=== PATIENT | female | born 1960 | race Caucasian/White ===

== ENCOUNTER 2019-04-03 21:52 | Inpatient (IN) | payer BC, OTHER, SELFPAY ==
[~2019-04-03 21:52] MED LIST: Sodium Chloride 0.9% 10 ML Syringe FLUSH PRN
[2019-04-03] MEDS ORDERED: Albuterol/Ipratropium 3.0-0.5 MG/3 ML Neb Soln NEB ONE (21:53)
[2019-04-03] MEDS ORDERED: methylPREDNISolone Sodium Succinate 125 MG/2 ML SDV IVPUSH ONE (21:54)
--- NOTE | 2019-04-03 22:02 | EDM.PDOC ---
ED HPI GENERAL MEDICAL PROBLEM - General Chief Complaint: Respiratory Problem Stated Complaint: [facility] Time Seen by Provider: 04/03/19 21:52 Source of Information: Reports: Patient, EMS History Limitations: Reports: Respiratory Distress - History of Present Illness INITIAL COMMENTS - FREE TEXT/NARRATIVE: The patient presents by [facility] for shortness of breath. The patient said she developed a cough today and her breathing and cough got much worse. Her oxygen saturations were 68% when EMS arrived. She was immediately put on oxygen and given [address] in. She has no history of COPD or asthma. She does smoke about a pack of cigarettes per day. She said about a year ago she got the flu and she has had trouble with her lungs since. She has no chest pain but she is very short of breath. She is speaking in short phrases. She has no fever or chills. She has no abdominal pain, nausea or vomiting. Onset: Gradual Duration: Hour(s): Severity: Severe Improves with: Reports: None Worsens with: Reports: None Associated Symptoms: Reports: Cough, Shortness of Breath. Denies: Fever/Chills , Headaches, Nausea/Vomiting - Related Data Allergies Allergy/AdvReac Type Severity Reaction Status Date / Time amoxicillin [From Augmentin] Allergy Airway Verified 04/03/19 22:27 Tightness cephalexin Allergy Airway Verified 04/03/19 22:27 Tightness clavulanic acid Allergy Airway Verified 04/03/19 22:27 [From Augmentin] Tightness enoxaparin [From Lovenox] Allergy Bradycardia Verified 04/03/19 22:27 Macrolide Antibiotics AdvReac Hallucinati Verified 04/03/19 22:27 ons antibiotic Allergy Airway Uncoded 04/03/19 22:27 Tightness Home Meds: Home Meds Carvedilol [Coreg] 25 mg PO BID 01/22/15 [History] Insulin Glarg,Human.Rec.Analog [LantUS Solostar] 52 units SUBCUT 1300 01/22/15 [ History] LORazepam [Ativan] 0.5 mg PO TID PRN 01/22/15 [History] Lisinopril 40 mg PO DAILY 01/22/15 [History] Simvastatin [Zocor] 40 mg PO DAILY 01/22/15 [History] Zolpidem [Ambien] 10 mg PO BEDTIME PRN 01/22/15 [History] glipiZIDE [Glipizide ER] 10 mg PO BID 01/22/15 [History] metFORMIN [Glucophage] 1,000 mg PO BID 01/22/15 [History] traZODone 50 mg PO BEDTIME PRN 01/22/15 [History] All Natural Vitamin Pack 01/13/16 [History] Aspirin [Children's Aspirin] 81 mg PO DAILY 01/13/16 [History] Sertraline [Zoloft] 50 mg PO DAILY 01/13/16 [History] Dulaglutide [Trulicity] 0.75 mg SUBCUT WEEKLY 04/03/19 [History] Past Medical History Other HEENT History: wears dentures, glasses Cardiovascular History: Reports: High Cholesterol, Hypertension Respiratory History: Reports: Sleep Apnea, SOB Other Respiratory History: chronic cough Gastrointestinal History: Reports: Diverticulosis, Other (See Below) Other Gastrointestinal History: melanosis coli Genitourinary History: Reports: Renal Calculus [employer] History: Reports: Other [employer] History: bilateral partial oophorectomy (has / of 1 ovary) Other Musculoskeletal History: joint pain Neurological History: Reports: Headaches, Chronic Other Neuro History: fatigue Psychiatric History: Reports: Anxiety, Depression Endocrine/Metabolic History: Reports: Diabetes, Type II - Infectious Disease History Infectious Disease History: Reports: C-Difficile - Past Surgical History GI Surgical History: Reports: Colonoscopy, Hernia Repair/Other Female Surgical History: Reports: Section, Oophorectomy Social & Family History - Family History HEENT: Reports: None Cardiac: Reports: [place] (mother) Respiratory: Reports: None GI: Reports: None : Reports: None Psychiatric: Reports: None Endocrine/Metabolic: Reports: IDDM - Living Situation & Occupation Living situation: Reports: with Spouse Occupation: Employed ED ROS GENERAL - Review of Systems Review Of Systems: See Below Constitutional: Reports: No Symptoms HEENT: Reports: No Symptoms Respiratory: Reports: Shortness of Breath, Cough Cardiovascular: Reports: No Symptoms Endocrine: Reports: No Symptoms GI/Abdominal: Reports: No Symptoms : Reports: No Symptoms Musculoskeletal: Reports: No Symptoms ED EXAM, GENERAL - Physical Exam Exam: See Below Exam Limited By: Respiratory Distress General Appearance: Alert, Severe Distress Ears: Normal External Exam Nose: Normal Inspection Head: Atraumatic, Normocephalic Neck: Normal Inspection Respiratory/Chest: Respiratory Distress (severe), Decreased Breath Sounds Cardiovascular: No Edema, No Murmur, Tachycardia GI/Abdominal: Soft, Non-Tender, No Organomegaly, No Mass Back Exam: Normal Inspection Extremities: Normal Inspection Neurological: Alert, Oriented, No Motor/Sensory Deficits EKG INTERPRETATION EKG Date: 04/03/19 Time: 21:57 Rhythm: NSR Rate (Beats/Min): 96 [place]: Normal P-Wave: Present QRS: Normal ST-T: Normal QT: Normal Course - Vital Signs Last Recorded V/S: Last Vital Signs Temp 97.8 F 04/03/19 21:53 Pulse 104 H 04/03/19 21:53 Resp 33 H 04/03/19 21:53 BP 189/85 H 04/03/19 21:53 Pulse Ox 94 L 04/03/19 22:21 - Orders/Labs/Meds Orders: Active Orders 24 hr Category Date Time Status Cardiac Monitoring [RC] . DIRECTED Care 04/03/19 21:52 Active EKG Documentation Completion [RC] STAT Care 04/03/19 21:53 Active Oxygen Therapy [RC] PRN Care 04/03/19 21:52 Active Peripheral IV Care [RC] . DIRECTED Care 04/03/19 21:53 Active RT Aerosol Therapy [RC] ASDIRECTED Care 04/03/19 21:54 Active Ang Chest [CT] Stat Exams 04/03/19 23:02 Taken Chest 1V Frontal [CR] Stat Exams 04/03/19 21:53 Taken CULTURE BLOOD [BC] Stat Lab 04/03/19 23:20 Received CULTURE BLOOD [BC] Stat Lab 04/03/19 23:30 Received Sodium Chloride 0.9% [Saline Flush] Med 04/03/19 21:52 Active 10 ml FLUSH ASDIRECTED PRN Sodium Chloride 0.9% [Saline Flush] Med 04/03/19 23:40 Active 10 ml FLUSH ASDIRECTED PRN Blood Culture x2 Reflex Set [OM.PC] Stat Oth 04/03/19 23:02 Ordered Blood Culture x2 Reflex Set [OM.PC] Stat Oth 04/03/19 23:43 Ordered Peripheral IV Insertion Adult [OM.PC] Stat Oth 04/03/19 21:52 Ordered Saline Lock Insert [OM.PC] Stat Oth 04/03/19 23:43 Ordered Severe Sepsis Onset Time [OM.PC] Stat Oth 04/03/19 23:43 Ordered Medication Orders Sodium Chloride (Saline Flush) 10 ml FLUSH ASDIRECTED PRN PRN Reason: Keep Vein Open Sodium Chloride (Saline Flush) 10 ml FLUSH ASDIRECTED PRN PRN Reason: Keep Vein Open Labs: Laboratory Tests 04/03/19 04/03/19 04/03/19 Range/Units 22:05 22:23 22:23 WBC 12.88 H (3.98-10.04) K/mm3 RBC 3.72 L (3.98-5.22) M/mm3 Hgb 8.9 L D (11.2-15.7) gm/dl Hct 30.8 L (34.1-44.9) % MCV 82.8 D (79.4-94.8) fl MCH 23.9 L (25.6-32.2) pg MCHC 28.9 L (32.2-35.5) g/dl RDW Std Deviation 56.2 H (36.4-46.3) fL Plt Count 424 H D (182-369) K/mm3 MPV 10.7 (9.4-12.3) fl Neut % (Auto) 71.4 H (34.0-71.1) % Lymph % (Auto) 20.6 (19.3-51.7) % [place] % (Auto) 6.5 (4.7-12.5) % Eos % (Auto) 1.1 (0.7-5.8) Baso % (Auto) 0.2 (0.1-1.2) % Neut # (Auto) 9.19 H (1.56-6.13) K/mm3 Lymph # (Auto) 2.65 (1.18-3.74) K/mm3 [place] # (Auto) 0.84 H (0.24-0.36) K/mm3 Eos # (Auto) 0.14 (0.04-0.36) K/mm3 Baso # (Auto) 0.03 (0.01-0.08) K/mm3 Manual Slide Review Abnormal smear PT (9.7-12.0) SECONDS INR D-Dimer, Quantitative (0.19-0.50) mg/L Puncture Site Lt radial ABG pH 7.30 L (7.35-7.45) ABG pCO2 47.1 H (35.0-45.0) mmHg ABG pO2 117.0 H (80.0-100.0) mmHg ABG HCO3 22.3 (22.0-26.0) meq/L ABG O2 Saturation 98.6 H (96.0-97.0) % ABG Base Excess -3.6 L (-2-2.0) Tio Test Positive A-a Gradient 167 mmHg O2 Delivery Device Simple mask Oxygen Flow Rate 7.0 FiO2 48.00 (21.00-100.00) % Sodium 137 (136-145) mEq/L Potassium 3.9 (3.5-5.1) mEq/L Chloride 102 (98-107) mEq/L Carbon Dioxide 25 (21-32) mEq/L Anion Gap 13.9 (5-15) BUN 10 (7-18) mg/dL Creatinine 0.9 (0.55-1.02) mg/dL Est Cr Clr Drug Dosing 61.31 mL/min Estimated GFR (MDRD) > 60 (>60) mL/min BUN/Creatinine Ratio 11.1 L (14-18) Glucose 229 H (74-106) mg/dL Lactic Acid (0.4-2.0) mmol/L Calcium 8.6 (8.5-10.1) mg/dL Total Bilirubin 0.2 (0.2-1.0) mg/dL AST 45 H (15-37) U/L ALT 36 (14-59) U/L Alkaline Phosphatase 92 (46-116) U/L Troponin I 0.021 (0.00-0.056) ng/mL C-Reactive Protein 0.4 (<1.0) mg/dL NT-Pro-B Natriuret Pep (0-125) pg/mL Total Protein 7.1 (6.4-8.2) g/dl Albumin 3.0 L (3.4-5.0) g/dl Globulin 4.1 gm/dL Albumin/Globulin Ratio 0.7 L (1-2) 04/03/19 04/03/19 04/03/19 Range/Units 22:23 22:23 22:33 WBC (3.98-10.04) K/mm3 RBC (3.98-5.22) M/mm3 Hgb (11.2-15.7) gm/dl Hct (34.1-44.9) % MCV (79.4-94.8) fl MCH (25.6-32.2) pg MCHC (32.2-35.5) g/dl RDW Std Deviation (36.4-46.3) fL Plt Count (182-369) K/mm3 MPV (9.4-12.3) fl Neut % (Auto) (34.0-71.1) % Lymph % (Auto) (19.3-51.7) % [place] % (Auto) (4.7-12.5) % Eos % (Auto) (0.7-5.8) Baso % (Auto) (0.1-1.2) % Neut # (Auto) (1.56-6.13) K/mm3 Lymph # (Auto) (1.18-3.74) K/mm3 [place] # (Auto) (0.24-0.36) K/mm3 Eos # (Auto) (0.04-0.36) K/mm3 Baso # (Auto) (0.01-0.08) K/mm3 Manual Slide Review PT 11.9 (9.7-12.0) SECONDS INR 1.10 D-Dimer, Quantitative 0.95 H (0.19-0.50) mg/L Puncture Site ABG pH (7.35-7.45) ABG pCO2 (35.0-45.0) mmHg ABG pO2 (80.0-100.0) mmHg ABG HCO3 (22.0-26.0) meq/L ABG O2 Saturation (96.0-97.0) % ABG Base Excess (-2-2.0) Tio Test A-a Gradient mmHg O2 Delivery Device Oxygen Flow Rate FiO2 (21.00-100.00) % Sodium (136-145) mEq/L Potassium (3.5-5.1) mEq/L Chloride (98-107) mEq/L Carbon Dioxide (21-32) mEq/L Anion Gap (5-15) BUN (7-18) mg/dL Creatinine (0.55-1.02) mg/dL Est Cr Clr Drug Dosing mL/min Estimated GFR (MDRD) (>60) mL/min BUN/Creatinine Ratio (14-18) Glucose (74-106) mg/dL Lactic Acid (0.4-2.0) mmol/L Calcium (8.5-10.1) mg/dL Total Bilirubin (0.2-1.0) mg/dL AST (15-37) U/L ALT (14-59) U/L Alkaline Phosphatase (46-116) U/L Troponin I (0.00-0.056) ng/mL C-Reactive Protein (<1.0) mg/dL NT-Pro-B Natriuret Pep 1498 H (0-125) pg/mL Total Protein (6.4-8.2) g/dl Albumin (3.4-5.0) g/dl Globulin gm/dL Albumin/Globulin Ratio (1-2) 04/03/19 04/03/19 Range/Units 22:33 23:30 WBC (3.98-10.04) K/mm3 RBC (3.98-5.22) M/mm3 Hgb (11.2-15.7) gm/dl Hct (34.1-44.9) % MCV (79.4-94.8) fl MCH (25.6-32.2) pg MCHC (32.2-35.5) g/dl RDW Std Deviation (36.4-46.3) fL Plt Count (182-369) K/mm3 MPV (9.4-12.3) fl Neut % (Auto) (34.0-71.1) % Lymph % (Auto) (19.3-51.7) % [place] % (Auto) (4.7-12.5) % Eos % (Auto) (0.7-5.8) Baso % (Auto) (0.1-1.2) % Neut # (Auto) (1.56-6.13) K/mm3 Lymph # (Auto) (1.18-3.74) K/mm3 [place] # (Auto) (0.24-0.36) K/mm3 Eos # (Auto) (0.04-0.36) K/mm3 Baso # (Auto) (0.01-0.08) K/mm3 Manual Slide Review PT (9.7-12.0) SECONDS INR D-Dimer, Quantitative (0.19-0.50) mg/L Puncture Site ABG pH (7.35-7.45) ABG pCO2 (35.0-45.0) mmHg ABG pO2 (80.0-100.0) mmHg ABG HCO3 (22.0-26.0) meq/L ABG O2 Saturation (96.0-97.0) % ABG Base Excess (-2-2.0) Tio Test A-a Gradient mmHg O2 Delivery Device Oxygen Flow Rate FiO2 (21.00-100.00) % Sodium (136-145) mEq/L Potassium (3.5-5.1) mEq/L Chloride (98-107) mEq/L Carbon Dioxide (21-32) mEq/L Anion Gap (5-15) BUN (7-18) mg/dL Creatinine (0.55-1.02) mg/dL Est Cr Clr Drug Dosing mL/min Estimated GFR (MDRD) (>60) mL/min BUN/Creatinine Ratio (14-18) Glucose (74-106) mg/dL Lactic Acid 1.8 (0.4-2.0) mmol/L Calcium (8.5-10.1) mg/dL Total Bilirubin (0.2-1.0) mg/dL AST (15-37) U/L ALT (14-59) U/L Alkaline Phosphatase (46-116) U/L Troponin I (0.00-0.056) ng/mL C-Reactive Protein 0.3 (<1.0) mg/dL NT-Pro-B Natriuret Pep (0-125) pg/mL Total Protein (6.4-8.2) g/dl Albumin (3.4-5.0) g/dl Globulin gm/dL Albumin/Globulin Ratio (1-2) Meds: Medications Generic Name Dose Route Start Last Admin Trade Name Freq PRN Reason Stop Dose Admin Sodium Chloride 10 ml 04/03/19 21:52 Saline Flush FLUSH ASDIRECTED PRN Keep Vein Open Sodium Chloride 10 ml 04/03/19 23:40 Saline Flush FLUSH ASDIRECTED PRN Keep Vein Open Discontinued Medications Generic Name Dose Route Start Last Admin Trade Name Freq PRN Reason Stop Dose Admin Albuterol/Ipratropium 3 ml 04/03/19 21:53 01/28/20 22:14 Duoneb 3.0-0.5 Mg/3 Ml NEB 04/03/19 21:54 3 ml ONETIME ONE Administration Furosemide 40 mg 04/04/19 00:39 Lasix IVPUSH 04/04/19 00:40 NOW ONE Magnesium Sulfate/Dextrose 1 100 mls @ 100 mls/hr 04/03/19 22:00 04/03/19 23: 57 gm/ Premix IV 04/03/19 23:59 100 mls/hr Q1H ELY Administration Vancomycin HCl 2 gm/ Dextrose/ 250 mls @ 167 mls/hr 04/03/19 23:40 04/04/19 00:45 Water IV 04/04/19 01:09 Not Given ONETIME ONE Methylprednisolone Sodium Succinate 125 mg 04/03/19 21:54 04/03/19 22:08 Solu-Medrol IVPUSH 04/03/19 21:55 125 mg ONETIME ONE Administration - Re-Assessments/Exams Free Text/Narrative Re-Assessment/Exam: 04/03/19 22:03 I ordered an IV saline lock, oxygen, duoneb, solu-medrol 125mg IV, magnesium 2 grams IV, EKG, CXR and labs. Her EKG shows a NSR with no acute changes. 04/03/19 23:35 Her CXR shows nothing acute. Her WBC was elevated at 12.88. Her Hgb was low at 8.9. Her platelets were elevated at 424. Her D-dimer was elevated at 0.95. Her pH was low at 7.3. Her pCO2 was elevated at 47.1. Her pO2 was elevated at 117. Her glucose was elevated at 229. Her AST was elevated at 45. Her troponin is negative. Her BNP is elevated at 1498. She is breathing much better. She is on 3L now and her oxygen saturations are over 94%. She is moving more air. I have added a CT angio of her chest, blood cultures and lactic acid. 04/04/19 00:[address] angio of her chest shows no pulmonary embolism. Pattern of interstitial pulmonary edema. Her lactic acid was normal. I do not feel she has sepsis or pneumonia. She does have some CHF. I did order lasix 40mg IV. I feel she needs to be admitted. I will admit her to the hospitalist service. Departure - Departure Time of Disposition: 00:50 Disposition: Admitted As Inpatient 67 Condition: Fair Clinical Impression: Hypoxia CHF (congestive heart failure) Qualifiers: Heart failure type: other Qualified Code(s): I50.9 - Heart failure, unspecified COPD (chronic obstructive pulmonary disease) Qualifiers: COPD type: unspecified COPD Qualified Code(s): J44.9 - Chronic obstructive pulmonary disease, unspecified - Discharge Information Referrals: PCP,Unknown [Ordering Only Provider] - Forms: ED Department Discharge Sepsis Event Note - Focused Exam Vital Signs: Vital Signs Temp Pulse Resp BP Pulse Ox Pulse Ox Pulse Ox 04/03/19 22:21 94 L 04/03/19 21:54 100 04/03/19 21:53 97.8 F 104 H 33 H 189/85 H 92 L 04/03/19 21:52 93 L Date Exam was Performed: 04/04/19 Time Exam was Performed: 00:45 - My Orders Last 24 Hours: My Active Orders 04/03/19 21:52 Cardiac Monitoring [RC] . DIRECTED Oxygen Therapy [RC] PRN Sodium Chloride 0.9% [Saline Flush] 10 ml FLUSH ASDIRECTED PRN Peripheral IV Insertion Adult [OM.PC] Stat 04/03/19 21:53 EKG Documentation Completion [RC] STAT Peripheral IV Care [RC] . DIRECTED Chest 1V Frontal [CR] Stat 04/03/19 21:54 RT Aerosol Therapy [RC] ASDIRECTED 04/03/19 23:02 Ang Chest [CT] Stat Blood Culture x2 Reflex Set [OM.PC] Stat 04/03/19 23:20 CULTURE BLOOD [BC] Stat 04/03/19 23:30 CULTURE BLOOD [BC] Stat 04/03/19 23:40 Sodium Chloride 0.9% [Saline Flush] 10 ml FLUSH ASDIRECTED PRN 04/03/19 23:43 Blood Culture x2 Reflex Set [OM.PC] Stat Saline Lock Insert [OM.PC] Stat Severe Sepsis Onset Time [OM.PC] Stat - Assessment/Plan Last 24 Hours: My Active Orders 04/03/19 21:52 Cardiac Monitoring [RC] . DIRECTED Oxygen Therapy [RC] PRN Sodium Chloride 0.9% [Saline Flush] 10 ml FLUSH ASDIRECTED PRN Peripheral IV Insertion Adult [OM.PC] Stat 04/03/19 21:53 EKG Documentation Completion [RC] STAT Peripheral IV Care [RC] . DIRECTED Chest 1V Frontal [CR] Stat 04/03/19 21:54 RT Aerosol Therapy [RC] ASDIRECTED 04/03/19 23:02 Ang Chest [CT] Stat Blood Culture x2 Reflex Set [OM.PC] Stat 04/03/19 23:20 CULTURE BLOOD [BC] Stat 04/03/19 23:30 CULTURE BLOOD [BC] Stat 04/03/19 23:40 Sodium Chloride 0.9% [Saline Flush] 10 ml FLUSH ASDIRECTED PRN 04/03/19 23:43 Blood Culture x2 Reflex Set [OM.PC] Stat Saline Lock Insert [OM.PC] Stat Severe Sepsis Onset Time [OM.PC] Stat
[2019-04-03] MEDS ORDERED: Sodium Chloride 0.9% 10 ML Syringe FLUSH PRN (23:40)
[2019-04-03] MEDS ORDERED: Vancomycin 2 GM in Dextrose 5% in Water 250 ML IV ONE ×2 (23:40)
[2019-04-04] MEDS ORDERED: Furosemide 40 MG/4 ML VIAL IVPUSH ONE (00:39)
[2019-04-04] MEDS: Albuterol/Ipratropium 3.0-0.5 MG/3 ML Neb Soln NEB SCH ×2 (03:43→08:21)
--- NOTE | 2019-04-04 07:38 | CT ---
CT chest Technique: Multiple axial sections through the chest were obtained. Intravenous contrast was utilized. Study has been performed as a pulmonary angiogram protocol. Comparison: Pulmonary arteries are moderately well opacified. No filling defects are seen to indicate definite pulmonary embolism. Mild coronary artery calcification is seen. Visualized upper abdominal structures showed no discrete abnormality. Mediastinum shows several lymph nodes which are felt to be within normal limits. No axillary adenopathy is identified. Heart is enlarged. Slight atelectasis is present within both lung bases. Findings suspicious for mild pulmonary vascular congestion. Bone window settings were reviewed. Slight degenerative change is noted throughout the spine. No acute osseous finding is appreciated. Impression: 1. Findings within both lungs suggesting mild pulmonary vascular congestion. Heart is enlarged and please correlate if clinical symptoms suggest mild CHF. 2. No findings of pulmonary embolism. 3. Other findings believed to be incidental as described above. Diagnostic code #3 This report was dictated in [place] Standard Time I agree with preliminary report from [facility], finalized on 04/04/19, 1:10 AM Central Time
--- NOTE | 2019-04-04 07:38 | CR ---
Chest: Frontal view of the chest was obtained. Comparison: Previous chest x-ray of 10/23/15. Heart size at the upper limits of normal. Lung markings are mildly increased suspicious for mild pulmonary vascular congestion. Lungs otherwise are clear. No acute parenchymal change is seen. Scattered endplate spurring is noted within the spine. Impression: 1. Findings suspicious for mild CHF. 2. Please correlate if this matches patient's clinical symptoms. Diagnostic code #3
[2019-04-04] MEDS ORDERED: 50% Dextrose in Water 50 ML Syringe IVPUSH PRN (08:17)
[2019-04-04] MEDS ORDERED: Albuterol 0.083% 2.5 MG/3 ML Neb Soln NEB PRN (08:18)
[2019-04-04] MEDS ORDERED: Ondansetron 4 MG/2 ML SDV IV PRN (08:18)
[2019-04-04] MEDS ORDERED: Acetaminophen 325 MG Tab PO PRN (08:18)
[2019-04-04] MEDS: Nicotine 14 MG/24 Hr Patch TRDERM SCH (09:19)
[2019-04-04 09:27] LABS: HEMOGLOBIN A1C 7.5 % (4.50-6.20)
[2019-04-04] MEDS ORDERED: Zolpidem 10 MG Tab PO PRN (09:49)
--- NOTE | 2019-04-04 09:55 | PCM.HP.2 ---
H&P History of Present Illness - General Date of Service: 04/04/19 Admit Problem/Dx: Admission Diagnosis/Problem Admission Diagnosis/Problem Hypoxia - History of Present Illness Initial Comments - Free Text/Narative: Loly presented to the emergency room last night with chief complaint of "could not breathe." Patient states that last night she was congested, had nasal mucus, was coughing and could not stop. Called EMS because she could not breathe and when they arrived at her home oxygen saturations were 68%. Patient received 2 breathing treatments and placed on oxygen. She denies any history of COPD or asthma, but states last year she had a "lung flu" and she has had a cough ever since. She smokes 1/2 pack/day for the last 40 years. She states that she has been on inhalers. Patient denies any fever, chills, night sweats, chest pain, dyspnea on exertion, or PND. 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 Patient was very confused about her medication and stated over again that her knows why she is on her medications. In the emergency room a CT of the chest was performed after a positive d-dimer which found findings within both lungs suggesting mild pulmonary vascular congestion. Heart is enlarged and please correlate if clinical symptoms suggest mild CHF. She was given 40 mg of IV Lasix, Solu-Medrol, magnesium, and DuoNeb. Patient is feeling much better this morning and oxygen saturations have improved. Emergency room labs: WBC 12.88, hemoglobin 8.9, platelets 424, MCV 82.8 and MCH 23.9. pH 7.30, PCO2 47.1, PO2 117.0, HCO3 22.3, on 7 L simple mask with FiO2 of 40%. Troponin 0 0.021, C-reactive protein 0.4, BNP 1498, d-dimer 0.95, negative lactic acid - Related Data Allergies/Adverse Reactions: Allergies Allergy/AdvReac Type Severity Reaction Status Date / Time amoxicillin [From Augmentin] Allergy Airway Verified 04/03/19 22:27 Tightness cephalexin Allergy Airway Verified 04/03/19 22:27 Tightness clavulanic acid Allergy Airway Verified 04/03/19 22:27 [From Augmentin] Tightness enoxaparin [From Lovenox] Allergy Bradycardia Verified 04/03/19 22:27 Macrolide Antibiotics AdvReac Hallucinati Verified 04/03/19 22:27 ons antibiotic Allergy Airway Uncoded 04/03/19 22:27 Tightness Home Medications: Home Meds Carvedilol [Coreg] 25 mg PO BID 01/22/15 [History] Insulin Glarg,Human.Rec.Analog [LantUS Solostar] 52 units SUBCUT 1300 01/22/15 [ History] Lisinopril 40 mg PO DAILY 01/22/15 [History] Simvastatin [Zocor] 40 mg PO DAILY 01/22/15 [History] Zolpidem [Ambien] 10 mg PO BEDTIME PRN 01/22/15 [History] glipiZIDE [Glipizide ER] 10 mg PO BID 01/22/15 [History] metFORMIN [Glucophage] 1,000 mg PO BID 01/22/15 [History] traZODone 50 mg PO BEDTIME PRN 01/22/15 [History] All Natural Vitamin Pack 01/13/16 [History] Aspirin [Children's Aspirin] 81 mg PO DAILY 01/13/16 [History] Dulaglutide [Trulicity] 0.75 mg SUBCUT WEEKLY 04/03/19 [History] Escitalopram [Lexapro] 20 mg PO DAILY 04/04/19 [History] Past Medical History Other HEENT History: wears upper dentures, glasses Cardiovascular History: Reports: Heart Failure, High Cholesterol, Hypertension, SOB on Exertion Respiratory History: Reports: COPD, Sleep Apnea, SOB Other Respiratory History: chronic cough Gastrointestinal History: Reports: Diverticulosis, Other (See Below) Other Gastrointestinal History: melanosis coli Genitourinary History: Reports: Renal Calculus [employer]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: Other OB/BYN History: bilateral partial oophorectomy (has / of 1 ovary) Musculoskeletal History: Reports: Arthritis, Other (See Below) Other Musculoskeletal History: joint pain Neurological History: Reports: Headaches, Chronic Other Neuro History: fatigue Psychiatric History: Reports: Anxiety, Depression Endocrine/Metabolic History: Reports: Diabetes, Type II - Infectious Disease History Infectious Disease History: Reports: C-Difficile, Chicken Pox - Past Surgical History Cardiovascular Surgical History: Reports: None Respiratory Surgical History: Reports: None GI Surgical History: Reports: Appendectomy, Cholecystectomy, Colonoscopy, Hernia Repair/Other Female Surgical History: Reports: Section, Oophorectomy Neurological Surgical History: Reports: None Musculoskeletal Surgical History: Reports: None Social & Family History - Family History Family Medical History: Noncontributory HEENT: Reports: None Cardiac: Reports: [place] Respiratory: Reports: None GI: Reports: None : Reports: None Psychiatric: Reports: None Endocrine/Metabolic: Reports: IDDM Other Endocrine/Metabolic Family History: Alpha1 antitripsin deficiency - Tobacco Use Smoking Status *Q: Current Every Day Smoker Years of Tobacco use: 40 Packs/Tins Daily: 1 Used Tobacco, but Quit: No Second Hand Smoke Exposure: Yes - Caffeine Use Caffeine Use: Reports: Coffee, Soda - Recreational Drug Use Recreational Drug Use: No - Living Situation & Occupation Living situation: Reports: with Spouse Occupation: Employed H&P Review of Systems - Review of Systems: Review Of Systems: Comprehensive ROS is negative, except as noted in HPI. Exam - Exam Exam: See Below - Vital Signs Vital Signs: Last Vital Signs Temp 97.3 F 04/04/19 01:56 Pulse 77 04/04/19 01:56 Resp 22 H 04/04/19 01:56 BP 144/61 H 04/04/19 01:56 Pulse Ox 90 L 04/04/19 08:21 Weight: 273 lb 6.4 oz - Exam Quality Assessment: Supplemental Oxygen General: Alert, Oriented, 4 HEENT: Conjunctiva Clear, Hearing Intact, Mucosa Moist & [place], Normal Nasal Septum Neck: Supple, Trachea Midline, 2 Lungs: Normal Respiratory Effort, Rales Cardiovascular: Regular Rate, Regular Rhythm GI/Abdominal Exam: Normal Bowel Sounds, Soft, Non-Tender, No Organomegaly, No Distention, No Abnormal Bruit, No Mass, Pelvis Stable Back Exam: Normal Inspection Extremities: Normal Inspection, Normal Range of Motion, Non-Tender, Normal Capillary Refill, Pedal Edema (Scant) Skin: Warm, Dry, Intact Neurological: Cranial Nerves Intact Neuro Extensive - Mental Status: Alert, Oriented x3, Normal Mood/Affect, Memory Intact Neuro Extensive - Motor, Sensory, Reflexes: CN II-XII Intact Psychiatric: Alert, Normal Affect, Normal Mood - Patient Data Lab Results Last 24 hrs: Laboratory Results - last 24 hr 04/03/19 04/03/19 04/03/19 Range/Units 22:05 22:23 22:23 WBC 12.88 H (3.98-10.04) K/mm3 RBC 3.72 L (3.98-5.22) M/mm3 Hgb 8.9 L D (11.2-15.7) gm/dl Hct 30.8 L (34.1-44.9) % MCV 82.8 D (79.4-94.8) fl MCH 23.9 L (25.6-32.2) pg MCHC 28.9 L (32.2-35.5) g/dl RDW Std Deviation 56.2 H (36.4-46.3) fL Plt Count 424 H D (182-369) K/mm3 MPV 10.7 (9.4-12.3) fl Neut % (Auto) 71.4 H (34.0-71.1) % Lymph % (Auto) 20.6 (19.3-51.7) % [place] % (Auto) 6.5 (4.7-12.5) % Eos % (Auto) 1.1 (0.7-5.8) Baso % (Auto) 0.2 (0.1-1.2) % Neut # (Auto) 9.19 H (1.56-6.13) K/mm3 Lymph # (Auto) 2.65 (1.18-3.74) K/mm3 [place] # (Auto) 0.84 H (0.24-0.36) K/mm3 Eos # (Auto) 0.14 (0.04-0.36) K/mm3 Baso # (Auto) 0.03 (0.01-0.08) K/mm3 Manual Slide Review Abnormal smear PT (9.7-12.0) SECONDS INR D-Dimer, Quantitative (0.19-0.50) mg/L Puncture Site Lt radial ABG pH 7.30 L (7.35-7.45) ABG pCO2 47.1 H (35.0-45.0) mmHg ABG pO2 117.0 H (80.0-100.0) mmHg ABG HCO3 22.3 (22.0-26.0) meq/L ABG O2 Saturation 98.6 H (96.0-97.0) % ABG Base Excess -3.6 L (-2-2.0) Tio Test Positive A-a Gradient 167 mmHg O2 Delivery Device Simple mask Oxygen Flow Rate 7.0 FiO2 48.00 (21.00-100.00) % Sodium 137 (136-145) mEq/L Potassium 3.9 (3.5-5.1) mEq/L Chloride 102 (98-107) mEq/L Carbon Dioxide 25 (21-32) mEq/L Anion Gap 13.9 (5-15) BUN 10 (7-18) mg/dL Creatinine 0.9 (0.55-1.02) mg/dL Est Cr Clr Drug Dosing 61.31 mL/min Estimated GFR (MDRD) > 60 (>60) mL/min BUN/Creatinine Ratio 11.1 L (14-18) Glucose 229 H (74-106) mg/dL Hemoglobin A1c (4.50-6.20) % Lactic Acid (0.4-2.0) mmol/L Calcium 8.6 (8.5-10.1) mg/dL Magnesium (1.8-2.4) mg/dl Total Bilirubin 0.2 (0.2-1.0) mg/dL AST 45 H (15-37) U/L ALT 36 (14-59) U/L Alkaline Phosphatase 92 (46-116) U/L Troponin I 0.021 (0.00-0.056) ng/mL C-Reactive Protein 0.4 (<1.0) mg/dL NT-Pro-B Natriuret Pep (0-125) pg/mL Total Protein 7.1 (6.4-8.2) g/dl Albumin 3.0 L (3.4-5.0) g/dl Globulin 4.1 gm/dL Albumin/Globulin Ratio 0.7 L (1-2) 04/03/19 04/03/19 04/03/19 Range/Units 22:23 22:23 22:33 WBC (3.98-10.04) K/mm3 RBC (3.98-5.22) M/mm3 Hgb (11.2-15.7) gm/dl Hct (34.1-44.9) % MCV (79.4-94.8) fl MCH (25.6-32.2) pg MCHC (32.2-35.5) g/dl RDW Std Deviation (36.4-46.3) fL Plt Count (182-369) K/mm3 MPV (9.4-12.3) fl Neut % (Auto) (34.0-71.1) % Lymph % (Auto) (19.3-51.7) % [place] % (Auto) (4.7-12.5) % Eos % (Auto) (0.7-5.8) Baso % (Auto) (0.1-1.2) % Neut # (Auto) (1.56-6.13) K/mm3 Lymph # (Auto) (1.18-3.74) K/mm3 [place] # (Auto) (0.24-0.36) K/mm3 Eos # (Auto) (0.04-0.36) K/mm3 Baso # (Auto) (0.01-0.08) K/mm3 Manual Slide Review PT 11.9 (9.7-12.0) SECONDS INR 1.10 D-Dimer, Quantitative 0.95 H (0.19-0.50) mg/L Puncture Site ABG pH (7.35-7.45) ABG pCO2 (35.0-45.0) mmHg ABG pO2 (80.0-100.0) mmHg ABG HCO3 (22.0-26.0) meq/L ABG O2 Saturation (96.0-97.0) % ABG Base Excess (-2-2.0) Tio Test A-a Gradient mmHg O2 Delivery Device Oxygen Flow Rate FiO2 (21.00-100.00) % Sodium (136-145) mEq/L Potassium (3.5-5.1) mEq/L Chloride (98-107) mEq/L Carbon Dioxide (21-32) mEq/L Anion Gap (5-15) BUN (7-18) mg/dL Creatinine (0.55-1.02) mg/dL Est Cr Clr Drug Dosing mL/min Estimated GFR (MDRD) (>60) mL/min BUN/Creatinine Ratio (14-18) Glucose (74-106) mg/dL Hemoglobin A1c (4.50-6.20) % Lactic Acid (0.4-2.0) mmol/L Calcium (8.5-10.1) mg/dL Magnesium (1.8-2.4) mg/dl Total Bilirubin (0.2-1.0) mg/dL AST (15-37) U/L ALT (14-59) U/L Alkaline Phosphatase (46-116) U/L Troponin I (0.00-0.056) ng/mL C-Reactive Protein (<1.0) mg/dL NT-Pro-B Natriuret Pep 1498 H (0-125) pg/mL Total Protein (6.4-8.2) g/dl Albumin (3.4-5.0) g/dl Globulin gm/dL Albumin/Globulin Ratio (1-2) 04/03/19 04/03/19 04/04/19 Range/Units 22:33 23:30 07:58 WBC (3.98-10.04) K/mm3 RBC (3.98-5.22) M/mm3 Hgb (11.2-15.7) gm/dl Hct (34.1-44.9) % MCV (79.4-94.8) fl MCH (25.6-32.2) pg MCHC (32.2-35.5) g/dl RDW Std Deviation (36.4-46.3) fL Plt Count (182-369) K/mm3 MPV (9.4-12.3) fl Neut % (Auto) (34.0-71.1) % Lymph % (Auto) (19.3-51.7) % [place] % (Auto) (4.7-12.5) % Eos % (Auto) (0.7-5.8) Baso % (Auto) (0.1-1.2) % Neut # (Auto) (1.56-6.13) K/mm3 Lymph # (Auto) (1.18-3.74) K/mm3 [place] # (Auto) (0.24-0.36) K/mm3 Eos # (Auto) (0.04-0.36) K/mm3 Baso # (Auto) (0.01-0.08) K/mm3 Manual Slide Review PT (9.7-12.0) SECONDS INR D-Dimer, Quantitative (0.19-0.50) mg/L Puncture Site Rt radial ABG pH 7.44 (7.35-7.45) ABG pCO2 34.1 L (35.0-45.0) mmHg ABG pO2 63.0 L (80.0-100.0) mmHg ABG HCO3 22.7 (22.0-26.0) meq/L ABG O2 Saturation 93.1 L (96.0-97.0) % ABG Base Excess -0.6 (-2-2.0) Tio Test A-a Gradient 66 mmHg O2 Delivery Device Nasal cannula Oxygen Flow Rate 1.0 FiO2 24.00 (21.00-100.00) % Sodium (136-145) mEq/L Potassium (3.5-5.1) mEq/L Chloride (98-107) mEq/L Carbon Dioxide (21-32) mEq/L Anion Gap (5-15) BUN (7-18) mg/dL Creatinine (0.55-1.02) mg/dL Est Cr Clr Drug Dosing mL/min Estimated GFR (MDRD) (>60) mL/min BUN/Creatinine Ratio (14-18) Glucose (74-106) mg/dL Hemoglobin A1c (4.50-6.20) % Lactic Acid 1.8 (0.4-2.0) mmol/L Calcium (8.5-10.1) mg/dL Magnesium (1.8-2.4) mg/dl Total Bilirubin (0.2-1.0) mg/dL AST (15-37) U/L ALT (14-59) U/L Alkaline Phosphatase (46-116) U/L Troponin I (0.00-0.056) ng/mL C-Reactive Protein 0.3 (<1.0) mg/dL NT-Pro-B Natriuret Pep (0-125) pg/mL Total Protein (6.4-8.2) g/dl Albumin (3.4-5.0) g/dl Globulin gm/dL Albumin/Globulin Ratio (1-2) 04/04/19 04/04/19 04/04/19 Range/Units 08:50 08:50 08:50 WBC 11.45 H (3.98-10.04) K/mm3 RBC 3.87 L (3.98-5.22) M/mm3 Hgb 9.1 L (11.2-15.7) gm/dl Hct 31.3 L (34.1-44.9) % MCV 80.9 (79.4-94.8) fl MCH 23.5 L (25.6-32.2) pg MCHC 29.1 L (32.2-35.5) g/dl RDW Std Deviation 54.5 H (36.4-46.3) fL Plt Count 424 H (182-369) K/mm3 MPV 10.5 (9.4-12.3) fl Neut % (Auto) 83.5 H (34.0-71.1) % Lymph % (Auto) 15.0 L (19.3-51.7) % [place] % (Auto) 1.3 L (4.7-12.5) % Eos % (Auto) 0 L (0.7-5.8) Baso % (Auto) 0.0 L (0.1-1.2) % Neut # (Auto) 9.56 H (1.56-6.13) K/mm3 Lymph # (Auto) 1.72 (1.18-3.74) K/mm3 [place] # (Auto) 0.15 L (0.24-0.36) K/mm3 Eos # (Auto) 0.00 L (0.04-0.36) K/mm3 Baso # (Auto) 0.00 L (0.01-0.08) K/mm3 Manual Slide Review PT (9.7-12.0) SECONDS INR D-Dimer, Quantitative (0.19-0.50) mg/L Puncture Site ABG pH (7.35-7.45) ABG pCO2 (35.0-45.0) mmHg ABG pO2 (80.0-100.0) mmHg ABG HCO3 (22.0-26.0) meq/L ABG O2 Saturation (96.0-97.0) % ABG Base Excess (-2-2.0) Tio Test A-a Gradient mmHg O2 Delivery Device Oxygen Flow Rate FiO2 (21.00-100.00) % Sodium 136 (136-145) mEq/L Potassium 4.2 (3.5-5.1) mEq/L Chloride 100 (98-107) mEq/L Carbon Dioxide 24 (21-32) mEq/L Anion Gap 16.2 H (5-15) BUN 14 (7-18) mg/dL Creatinine 1.0 (0.55-1.02) mg/dL Est Cr Clr Drug Dosing 55.18 mL/min Estimated GFR (MDRD) 57 (>60) mL/min BUN/Creatinine Ratio 14.0 (14-18) Glucose 214 H (74-106) mg/dL Hemoglobin A1c 7.50 H (4.50-6.20) % Lactic Acid (0.4-2.0) mmol/L Calcium 8.9 (8.5-10.1) mg/dL Magnesium 2.0 (1.8-2.4) mg/dl Total Bilirubin 0.3 (0.2-1.0) mg/dL AST 50 H (15-37) U/L ALT 39 (14-59) U/L Alkaline Phosphatase 92 (46-116) U/L Troponin I (0.00-0.056) ng/mL C-Reactive Protein (<1.0) mg/dL NT-Pro-B Natriuret Pep (0-125) pg/mL Total Protein 7.6 (6.4-8.2) g/dl Albumin 3.3 L (3.4-5.0) g/dl Globulin 4.3 gm/dL Albumin/Globulin Ratio 0.8 L (1-2) Result Diagrams: 04/04/19 08:50 04/04/19 08:50 Hong Results Last 24 hrs: Microbiology 04/03/19 22:11 Influenza Type A Antigen Screen - Final Nasopharyngeal Swab NEGATIVE INFLUENZA A VIRUS AG REFERENCE RANGE: NEGATIVE Influenza Type B Antigen Screen - Final NEGATIVE INFLUENZA B VIRUS AG REFERENCE RANGE: NEGATIVE Sepsis Event Note - Evaluation Sepsis Screening Result: No Definite Risk - Focused Exam Vital Signs: Vital Signs Temp Pulse Pulse Resp BP Pulse Ox Pulse Ox 04/04/19 08:21 90 L 04/04/19 06:00 92 L 04/04/19 03:43 95 04/04/19 01:56 97.3 F 77 22 H 144/61 H 97 04/04/19 01:15 81 28 H 96 04/03/19 22:21 94 L Date Exam was Performed: 04/04/19 Time Exam was Performed: 12:20 Problem List Initiated/Reviewed/Updated: Yes Orders Last 24hrs: Active Orders 24 hr Category Date Time Status Patient Status [ADT] Routine ADT 04/04/19 07:29 Active Antiembolic Devices [RC] PER UNIT ROUTINE Care 04/04/19 08:20 Active Bedrest Bathroom Privileges [RC] BID Care 04/04/19 03:20 Active Blood Glucose Check, Bedside [RC] QIDACANDBED Care 04/04/19 08:16 Active Cardiac Monitoring [RC] . DIRECTED Care 04/03/19 21:52 Active EKG Documentation Completion [RC] STAT Care 04/03/19 21:53 Active Oxygen Therapy [RC] PRN Care 04/03/19 21:52 Active Oxygen Therapy [RC] PRN Care 04/04/19 08:18 Active RT Aerosol Therapy [RC] ASDIRECTED Care 04/03/19 21:54 Active RT Aerosol Therapy [RC] ASDIRECTED Care 04/04/19 08:20 Active Up ad [place]elia [RC] ASDIRECTED Care 04/04/19 08:18 Active VTE/DVT Education [RC] PER UNIT ROUTINE Care 04/04/19 08:18 Active Vital Signs [RC] Q4H Care 04/04/19 08:18 Active [employer] Diet [DIET] Diet 04/04/19 Lunch Active Regular Diet [DIET] Diet 04/04/19 Breakfast Active Echo Comp wo Cont [US] Routine Exams 04/04/19 Ordered CBC WITH AUTO DIFF [HEME] AM Lab 04/05/19 05:11 Ordered CBC WITH AUTO DIFF [HEME] AM Lab 04/06/19 05:11 Ordered CBC WITH AUTO DIFF [HEME] AM Lab 04/07/19 05:11 Ordered CBC WITH AUTO DIFF [HEME] AM Lab 04/08/19 05:11 Ordered CBC WITH AUTO DIFF [HEME] AM Lab 04/09/19 05:11 Ordered CBC WITH AUTO DIFF [HEME] Routine Lab 04/04/19 08:50 Results CMP [COMPREHENSIVE METABOLIC PN,CMP] [CHEM] AM Lab 04/05/19 05:11 Ordered CMP [COMPREHENSIVE METABOLIC PN,CMP] [CHEM] AM Lab 04/06/19 05:11 Ordered CMP [COMPREHENSIVE METABOLIC PN,CMP] [CHEM] AM Lab 04/07/19 05:11 Ordered CMP [COMPREHENSIVE METABOLIC PN,CMP] [CHEM] AM Lab 04/08/19 05:11 Ordered CMP [COMPREHENSIVE METABOLIC PN,CMP] [CHEM] AM Lab 04/09/19 05:11 Ordered CULTURE BLOOD [BC] Stat Lab 04/03/19 23:20 Received CULTURE BLOOD [BC] Stat Lab 04/03/19 23:30 Received MAGNESIUM [CHEM] AM Lab 04/05/19 05:11 Ordered MAGNESIUM [CHEM] AM Lab 04/06/19 05:11 Ordered MAGNESIUM [CHEM] AM Lab 04/07/19 05:11 Ordered MAGNESIUM [CHEM] AM Lab 04/08/19 05:11 Ordered MAGNESIUM [CHEM] AM Lab 04/09/19 05:11 Ordered RESPIRATORY PANEL Routine Lab 04/04/19 07:39 Ordered Acetaminophen [Tylenol] Med 04/04/19 08:18 Active 650 mg PO Q4H PRN Albuterol [Proventil Neb Soln] Med 04/04/19 08:18 Active 2.5 mg NEB Q2H PRN Albuterol/Ipratropium [DuoNeb 3.0-0.5 MG/3 ML] Med 04/04/19 08:18 Active 3 ml NEB Q4H PRN Aspirin Med 04/05/19 09:00 Ordered 81 mg PO DAILY Dextrose 50% in Water Med 04/04/19 08:17 Active 50 ml IVPUSH ASDIRECTED PRN Escitalopram Med 04/05/19 09:00 Ordered 20 mg PO DAILY Furosemide [Lasix] Med 04/04/19 12:00 Once 20 mg IVPUSH ONETIME ONE Insulin Lispro [HumaLOG] Med 04/04/19 11:00 Active See Protocol SUBCUT QIDACANDBED Lisinopril [Lisinopril] Med 04/05/19 09:00 Ordered 40 mg PO DAILY Nicotine [Habitrol] Med 04/04/19 09:00 Active 14 mg TRDERM DAILY Ondansetron [Zofran] Med 04/04/19 08:18 Active 4 mg IV Q4H PRN Remove Patch Med 04/05/19 09:00 Active 1 ea TRDERM DAILY Simvastatin [Zocor] Med 04/05/19 09:00 Ordered 40 mg PO DAILY Sodium Chloride 0.9% [Saline Flush] Med 04/03/19 23:40 Active 10 ml FLUSH ASDIRECTED PRN Zolpidem [Ambien] Med 04/04/19 09:49 Ordered 10 mg PO BEDTIME PRN carvediloL [Coreg] Med 04/04/19 21:00 Ordered 12.5 mg PO BID traZODone Med 04/04/19 09:49 Ordered 50 mg PO BEDTIME PRN Blood Culture x2 Reflex Set [OM.PC] Stat Ot 04/03/19 23:02 Ordered Peripheral IV Insertion Adult [OM.PC] Stat Ot 04/03/19 21:52 Ordered Saline Lock Insert [OM.PC] Stat Ot 04/03/19 23:43 Ordered Sequential Compression Device [OM.PC] Per Unit Routine Ot 04/04/19 08:18 Ordered Severe Sepsis Onset Time [OM.PC] Stat Ot 04/03/19 23:43 Ordered Code Status [Resuscitation Status] Routine Resus Stat 04/04/19 03:19 Ordered Medication Orders Acetaminophen (Tylenol) 650 mg PO Q4H PRN PRN Reason: Pain (Mild 1-3)/fever Albuterol (Proventil Neb Soln) 2.5 mg NEB Q2H PRN PRN Reason: Shortness Of Breath/wheezing Albuterol/Ipratropium (Duoneb 3.0-0.5 Mg/3 Ml) 3 ml NEB Q4H PRN PRN Reason: Shortness Of Breath/wheezing Aspirin (Aspirin) 81 mg PO DAILY [facility] Carvedilol (Coreg) 12.5 mg PO BID [facility] Dextrose/Water (Dextrose 50% In Water) 50 ml IVPUSH ASDIRECTED PRN PRN Reason: Hypoglycemia Furosemide (Lasix) 20 mg IVPUSH ONETIME ONE Stop: 04/04/19 12:01 Insulin Human Lispro (Humalog) 0 unit SUBCUT QIDACANDBED [facility]; Protocol Miscellaneous Information (Remove Patch) 1 ea TRDERM DAILY [facility] Nicotine (Habitrol) 14 mg TRDERM DAILY [facility] Last Admin: 04/04/19 09:19 Dose: Not Given Non-Formulary Medication (Escitalopram) 20 mg PO DAILY [facility] Non-Formulary Medication (Lisinopril [Lisinopril]) 40 mg PO DAILY [facility] Non-Formulary Medication (Trazodone) 50 mg PO BEDTIME PRN PRN Reason: Insomnia Ondansetron HCl (Zofran) 4 mg IV Q4H PRN PRN Reason: Nausea/Vomiting Simvastatin (Zocor) 40 mg PO DAILY [facility] Sodium Chloride (Saline Flush) 10 ml FLUSH ASDIRECTED PRN PRN Reason: Keep Vein Open Zolpidem Tartrate (Ambien) 10 mg PO BEDTIME PRN PRN Reason: Insomnia Assessment/Plan Comment:: Assessment * CHF exacerbation with hypoxemia * proBNP 1498 * CT angiogram consistent with mild CHF * History of noncompliance with diuretic * Received 40 mg IV Lasix in the ER with good results * Viral respiratory tract infection * Symptoms are consistent with a viral respiratory tract infection, but also could be from her CHF. * [id number] history with history of chronic cough * She likely has COPD * History of being on inhalers * Anemia * * Sleep apnea * Patient on CPAP at night * Hypertension * On presentation to the ER 189/85 * On admission to the hospital 144/61 * Insulin-dependent diabetic * On glargine, Trulicity, glipizide, and metformin * Depression * On escitalopram at home Plan * Admit to medical floor on telemetry * Continue diuresis with IV Lasix * Echocardiogram * Nicotine patch offered * DuoNeb and albuterol nebulizer as needed * Do not give any steroids at this time since this appears to be more CHF than COPD. No wheezing on exam. * Respiratory panel * Continue home CPAP * Monitor vitals * Reconcile home meds * Continue glargine at 75% and cover with sliding scale * Hold Trulicity, glipizide, and metformin * VTE prophylaxis with SCDs anemia - Mortality Measure Prognosis:: Poor
[2019-04-04] MEDS ORDERED: Lisinopril 10 MG Tab PO ONE (10:56)
[2019-04-04] MEDS ORDERED: Furosemide 20 MG/2 ML VIAL IVPUSH ONE (12:00)
[2019-04-04] MEDS: Insulin Lispro 100 Units/ML 3 ML Vial SUBCUT SCH ×3 (12:43→21:30)
[2019-04-04] MEDS: Insulin Glarg,Human.Rec.Analog 100 Unit/ML SUBCUT SCH (13:04)
[2019-04-04] MEDS ORDERED: Benzonatate 100 MG Cap PO PRN (15:42)
[2019-04-04] MEDS: Albuterol/Ipratropium 3.0-0.5 MG/3 ML Neb Soln NEB PRN (20:23)
[2019-04-04] MEDS: Carvedilol 12.5 MG Tab PO SCH (21:22)
[2019-04-04] MEDS: traZODone 50 MG Tab PO PRN (21:25)
[2019-04-05] MEDS: Albuterol/Ipratropium 3.0-0.5 MG/3 ML Neb Soln NEB PRN (05:18)
[2019-04-05] MEDS ORDERED: Furosemide 40 MG Tab PO SCH (09:00)
[2019-04-05] MEDS ORDERED: Potassium Chloride 20 MEQ Tab.ER PO ONE (09:00)
[2019-04-05] MEDS: Citalopram 20 MG Tab PO SCH (09:24)
[2019-04-05] MEDS: Carvedilol 12.5 MG Tab PO SCH ×2 (09:25→20:38)
[2019-04-05] MEDS: Simvastatin 40 MG Tab PO SCH (09:26)
[2019-04-05] MEDS: Lisinopril 20 MG Tab PO SCH (09:27)
[2019-04-05] MEDS: Aspirin 81 MG Tab.Chew PO SCH (09:28)
[2019-04-05] MEDS: Nicotine 14 MG/24 Hr Patch TRDERM SCH ×2 (09:30→22:49)
[2019-04-05] MEDS: Insulin Lispro 100 Units/ML 3 ML Vial SUBCUT SCH ×4 (09:30→21:22)
--- NOTE | 2019-04-05 09:50 | PCM.PN ---
- General Info Date of Service: 04/05/19 Admission Dx/Problem (Free Text): Admission Diagnosis/Problem Admission Diagnosis/Problem Hypoxia Subjective Update: Patient is doing better today. She is off oxygen and not short of breath. Continued mild nonproductive cough. Echocardiogram was done yesterday. Patient states that in the past she has seen bright red blood in her stools, but states there was one episode 2 years ago. She also states she had a colonoscopy in 2016. She has not noticed any bright red blood in her stools recently, has had no black or tarry stools. - Review of Systems General: Reports: No Symptoms HEENT: Reports: No Symptoms Pulmonary: Reports: No Symptoms Cardiovascular: Reports: No Symptoms Musculoskeletal: Reports: No Symptoms - Patient Data Vitals - Most Recent: Last Vital Signs Temp 98.2 F 04/05/19 05:33 Pulse 74 04/05/19 09:25 Resp 20 04/05/19 05:33 BP 131/104 H 04/05/19 09:27 Pulse Ox 91 L 04/05/19 05:33 Weight - Most Recent: 268 lb 6.4 oz I&O - Last 24 Hours: Intake & Output 04/04/19 04/05/19 04/05/19 22:59 06:59 14:59 Intake Total 740 1200 Output Total 1050 900 Balance -310 300 Imaging Impressions - Last 24 Hours: Echocardiogram: Summary: Impaired relaxation (grade 1) pattern of LV diastolic filling. Mild concentric left ventricular hypertrophy. Left ventricular ejection fraction, by visual estimation, is 60 to 65%. No other significant findings on transthoracic echocardiogram. Lab Results Last 24 Hours: Laboratory Results - last 24 hr 04/04/19 04/04/19 04/04/19 Range/Units 08:50 08:50 11:43 WBC (3.98-10.04) K/mm3 RBC (3.98-5.22) M/mm3 Hgb (11.2-15.7) gm/dl Hct (34.1-44.9) % MCV (79.4-94.8) fl MCH (25.6-32.2) pg MCHC (32.2-35.5) g/dl RDW Std Deviation (36.4-46.3) fL Plt Count (182-369) K/mm3 MPV (9.4-12.3) fl Neut % (Auto) (34.0-71.1) % Lymph % (Auto) (19.3-51.7) % Shannon % (Auto) (4.7-12.5) % Eos % (Auto) (0.7-5.8) Baso % (Auto) (0.1-1.2) % Neut # (Auto) (1.56-6.13) K/mm3 Lymph # (Auto) (1.18-3.74) K/mm3 Shannon # (Auto) (0.24-0.36) K/mm3 Eos # (Auto) (0.04-0.36) K/mm3 Baso # (Auto) (0.01-0.08) K/mm3 Manual Slide Review Abnormal smear Sodium 136 (136-145) mEq/L Potassium 4.2 (3.5-5.1) mEq/L Chloride 100 (98-107) mEq/L Carbon Dioxide 24 (21-32) mEq/L Anion Gap 16.2 H (5-15) BUN 14 (7-18) mg/dL Creatinine 1.0 (0.55-1.02) mg/dL Est Cr Clr Drug Dosing 55.18 mL/min Estimated GFR (MDRD) 57 (>60) mL/min BUN/Creatinine Ratio 14.0 (14-18) Glucose 214 H (74-106) mg/dL POC Glucose 206 H (70-105) mg/dL Calcium 8.9 (8.5-10.1) mg/dL Magnesium 2.0 (1.8-2.4) mg/dl Iron (50-170) ug/dL TIBC (100-400) ug/dL % Saturation (20-55) % Transferrin (202-364) mg/dL Ferritin (8-252) ng/ml Total Bilirubin 0.3 (0.2-1.0) mg/dL AST 50 H (15-37) U/L ALT 39 (14-59) U/L Alkaline Phosphatase 92 (46-116) U/L Total Protein 7.6 (6.4-8.2) g/dl Albumin 3.3 L (3.4-5.0) g/dl Globulin 4.3 gm/dL Albumin/Globulin Ratio 0.8 L (1-2) 04/04/19 04/04/19 04/05/19 Range/Units 17:29 21:29 05:25 WBC 12.50 H (3.98-10.04) K/mm3 RBC 3.43 L (3.98-5.22) M/mm3 Hgb 8.3 L (11.2-15.7) gm/dl Hct 27.5 L (34.1-44.9) % MCV 80.2 (79.4-94.8) fl MCH 24.2 L (25.6-32.2) pg MCHC 30.2 L (32.2-35.5) g/dl RDW Std Deviation 54.3 H (36.4-46.3) fL Plt Count 369 (182-369) K/mm3 MPV 10.9 (9.4-12.3) fl Neut % (Auto) 54.9 (34.0-71.1) % Lymph % (Auto) 35.4 (19.3-51.7) % Shannon % (Auto) 9.3 (4.7-12.5) % Eos % (Auto) 0.2 L (0.7-5.8) Baso % (Auto) 0.2 (0.1-1.2) % Neut # (Auto) 6.85 H (1.56-6.13) K/mm3 Lymph # (Auto) 4.43 H (1.18-3.74) K/mm3 Shannon # (Auto) 1.16 H (0.24-0.36) K/mm3 Eos # (Auto) 0.03 L (0.04-0.36) K/mm3 Baso # (Auto) 0.03 (0.01-0.08) K/mm3 Manual Slide Review Sodium (136-145) mEq/L Potassium (3.5-5.1) mEq/L Chloride (98-107) mEq/L Carbon Dioxide (21-32) mEq/L Anion Gap (5-15) BUN (7-18) mg/dL Creatinine (0.55-1.02) mg/dL Est Cr Clr Drug Dosing mL/min Estimated GFR (MDRD) (>60) mL/min BUN/Creatinine Ratio (14-18) Glucose (74-106) mg/dL POC Glucose 141 H 127 H (70-105) mg/dL Calcium (8.5-10.1) mg/dL Magnesium (1.8-2.4) mg/dl Iron (50-170) ug/dL TIBC (100-400) ug/dL % Saturation (20-55) % Transferrin (202-364) mg/dL Ferritin (8-252) ng/ml Total Bilirubin (0.2-1.0) mg/dL AST (15-37) U/L ALT (14-59) U/L Alkaline Phosphatase (46-116) U/L Total Protein (6.4-8.2) g/dl Albumin (3.4-5.0) g/dl Globulin gm/dL Albumin/Globulin Ratio (1-2) 04/05/19 04/05/19 04/05/19 Range/Units 05:25 05:25 06:25 WBC (3.98-10.04) K/mm3 RBC (3.98-5.22) M/mm3 Hgb (11.2-15.7) gm/dl Hct (34.1-44.9) % MCV (79.4-94.8) fl MCH (25.6-32.2) pg MCHC (32.2-35.5) g/dl RDW Std Deviation (36.4-46.3) fL Plt Count (182-369) K/mm3 MPV (9.4-12.3) fl Neut % (Auto) (34.0-71.1) % Lymph % (Auto) (19.3-51.7) % Shannon % (Auto) (4.7-12.5) % Eos % (Auto) (0.7-5.8) Baso % (Auto) (0.1-1.2) % Neut # (Auto) (1.56-6.13) K/mm3 Lymph # (Auto) (1.18-3.74) K/mm3 Shannon # (Auto) (0.24-0.36) K/mm3 Eos # (Auto) (0.04-0.36) K/mm3 Baso # (Auto) (0.01-0.08) K/mm3 Manual Slide Review Sodium 140 (136-145) mEq/L Potassium 3.4 L (3.5-5.1) mEq/L Chloride 103 (98-107) mEq/L Carbon Dioxide 28 (21-32) mEq/L Anion Gap 12.4 (5-15) BUN 18 (7-18) mg/dL Creatinine 0.8 (0.55-1.02) mg/dL Est Cr Clr Drug Dosing 68.97 mL/min Estimated GFR (MDRD) > 60 (>60) mL/min BUN/Creatinine Ratio 22.5 H (14-18) Glucose 98 (74-106) mg/dL POC Glucose 103 (70-105) mg/dL Calcium 8.6 (8.5-10.1) mg/dL Magnesium 2.0 (1.8-2.4) mg/dl Iron 18 L (50-170) ug/dL TIBC 394 (100-400) ug/dL % Saturation 5 L (20-55) % Transferrin 315 (202-364) mg/dL Ferritin 14 (8-252) ng/ml Total Bilirubin 0.3 (0.2-1.0) mg/dL AST 46 H (15-37) U/L ALT 38 (14-59) U/L Alkaline Phosphatase 76 (46-116) U/L Total Protein 6.8 (6.4-8.2) g/dl Albumin 3.0 L (3.4-5.0) g/dl Globulin 3.8 gm/dL Albumin/Globulin Ratio 0.8 L (1-2) Hong Results Last 24 Hours: Microbiology 04/03/19 23:30 Aerobic Blood Culture - Preliminary Blood - Venous - Lab Draw NO GROWTH AFTER 1 DAY Anaerobic Blood Culture - Preliminary NO GROWTH AFTER 1 DAY 04/03/19 23:20 Aerobic Blood Culture - Preliminary Blood - Venous NO GROWTH AFTER 1 DAY Anaerobic Blood Culture - Preliminary NO GROWTH AFTER 1 DAY Med Orders - Current: Current Medications Acetaminophen (Tylenol) 650 mg PO Q4H PRN PRN Reason: Pain (Mild 1-3)/fever Albuterol (Proventil Neb Soln) 2.5 mg NEB Q2H PRN PRN Reason: Shortness Of Breath/wheezing Albuterol/Ipratropium (Duoneb 3.0-0.5 Mg/3 Ml) 3 ml NEB Q4H PRN PRN Reason: Shortness Of Breath/wheezing Last Admin: 04/05/19 05:18 Dose: 3 ml Aspirin (Aspirin) 81 mg PO DAILY ELY Last Admin: 04/05/19 09:28 Dose: 81 mg Benzonatate (Tessalon Perles) 100 mg PO TID PRN PRN Reason: Cough Last Admin: 04/04/19 16:48 Dose: 100 mg Carvedilol (Coreg) 12.5 mg PO BID [facility] Last Admin: 04/05/19 09:25 Dose: 12.5 mg Citalopram Hydrobromide (Celexa) 40 mg PO DAILY [facility] Last Admin: 04/05/19 09:24 Dose: 40 mg Dextrose/Water (Dextrose 50% In Water) 50 ml IVPUSH ASDIRECTED PRN PRN Reason: Hypoglycemia Furosemide (Lasix) 40 mg PO DAILY [facility] Last Admin: 04/05/19 09:24 Dose: 40 mg Insulin Glargine (Lantus) 40 unit SUBCUT Q24H [facility] Last Admin: 04/04/19 13:04 Dose: 40 units Insulin Human Lispro (Humalog) 0 unit SUBCUT QIDACANDBED [facility]; Protocol Last Admin: 04/05/19 09:30 Dose: Not Given Lisinopril (Prinivil) 40 mg PO DAILY [facility] Last Admin: 04/05/19 09:27 Dose: 40 mg Miscellaneous Information (Remove Patch) 1 ea TRDERM DAILY [facility] Last Admin: 04/05/19 09:31 Dose: Not Given Nicotine (Habitrol) 14 mg TRDERM DAILY [facility] Last Admin: 04/05/19 09:30 Dose: Not Given Ondansetron HCl (Zofran) 4 mg IV Q4H PRN PRN Reason: Nausea/Vomiting Simvastatin (Zocor) 40 mg PO DAILY [facility] Last Admin: 04/05/19 09:26 Dose: 40 mg Sodium Chloride (Saline Flush) 10 ml FLUSH ASDIRECTED PRN PRN Reason: Keep Vein Open Trazodone HCl (Trazodone) 50 mg PO BEDTIME PRN PRN Reason: Insomnia Last Admin: 04/04/19 21:25 Dose: 50 mg Zolpidem Tartrate (Ambien) 10 mg PO BEDTIME PRN PRN Reason: Insomnia Last Admin: 04/04/19 21:22 Dose: 10 mg Discontinued Medications Albuterol/Ipratropium (Duoneb 3.0-0.5 Mg/3 Ml) 3 ml NEB ONETIME ONE Stop: 04/03/19 21:54 Last Admin: 04/03/19 22:14 Dose: 3 ml Albuterol/Ipratropium (Duoneb 3.0-0.5 Mg/3 Ml) 3 ml NEB Q6HRRT [facility] Last Admin: 04/04/19 08:21 Dose: 3 ml Furosemide (Lasix) 40 mg IVPUSH NOW ONE Stop: 04/04/19 00:40 Last Admin: 04/04/19 00:48 Dose: 40 mg Furosemide (Lasix) 20 mg IVPUSH ONETIME ONE Stop: 04/04/19 12:01 Last Admin: 04/04/19 12:46 Dose: 20 mg Magnesium Sulfate/Dextrose 1 (gm/ Premix) 100 mls @ 100 mls/hr IV Q1H [facility]Y Stop: 04/03/19 23:59 Last Admin: 04/03/19 23:57 Dose: 100 mls/hr Vancomycin HCl 2 gm/ Dextrose/ (Water) 250 mls @ 167 mls/hr IV ONETIME ONE Stop: 04/04/19 01:09 Last Admin: 04/04/19 00:45 Dose: Not Given Lisinopril (Prinivil) 40 mg PO ONETIME ONE Stop: 04/04/19 10:57 Last Admin: 04/04/19 12:45 Dose: 40 mg Methylprednisolone Sodium Succinate (Solu-Medrol) 125 mg IVPUSH ONETIME ONE Stop: 04/03/19 21:55 Last Admin: 04/03/19 22:08 Dose: 125 mg Potassium Chloride (Klor-Con M20) 40 meq PO ONETIME ONE Stop: 04/05/19 09:01 Last Admin: 04/05/19 09:26 Dose: 40 meq Sodium Chloride (Saline Flush) 10 ml FLUSH ASDIRECTED PRN PRN Reason: Keep Vein Open - Exam Quality Assessment: No: Supplemental Oxygen General: Alert, Oriented HEENT: Pupils Equal, Mucous Membr. Moist/Celebration Neck: Supple Lungs: Clear to Auscultation, Normal Respiratory Effort, Other (First breath patient had wheezing in the right lower lobe which resolved with a couple of deep breaths.) Cardiovascular: Regular Rate, Regular Rhythm GI/Abdominal Exam: Normal Bowel Sounds, Soft, Non-Tender, No Organomegaly, No Distention Extremities: Normal Inspection, Non-Tender, Pedal Edema (Scant) Skin: Warm, Dry, Intact Neurological: No New Focal Deficit Psy/Mental Status: Alert, Depressed Sepsis Event Note - Evaluation Sepsis Screening Result: No Definite Risk - Focused Exam Vital Signs: Vital Signs Temp Pulse Resp BP Pulse Ox Pulse Ox 04/05/19 09:27 131/104 H 04/05/19 09:25 74 131/104 H 04/05/19 05:33 98.2 F 70 20 148/108 H 91 L 04/05/19 05:20 92 L Date Exam was Performed: 04/05/19 Time Exam was Performed: 09:44 - Problem List Review Problem List Initiated/Reviewed/Updated: Yes - My Orders Last 24 Hours: My Active Orders 04/04/19 09:00 Nicotine [Habitrol] 14 mg TRDERM DAILY 04/04/19 09:49 Zolpidem [Ambien] 10 mg PO BEDTIME PRN traZODone 50 mg PO BEDTIME PRN 04/04/19 11:00 Insulin Lispro [HumaLOG] See Protocol SUBCUT QIDACANDBED 04/04/19 13:00 Insulin Glarg,Human.Rec.Analog [LantUS] 40 unit SUBCUT Q24H 04/04/19 14:36 RESPIRATORY PANEL Routine 04/04/19 15:42 Benzonatate [Tessalon Perles] 100 mg PO TID PRN 04/04/19 21:00 carvediloL [Coreg] 12.5 mg PO BID 04/04/19 Lunch [employer] Diet [DIET] 04/05/19 05:25 FE, TIBC, TRANSFERRIN, FE SAT [CHEM] Routine FERRITIN [CHEM] Routine VITAMIN B12 [CHEM] Routine 04/05/19 08:39 OCCULT BLOOD SCREEN [OP] Routine 04/05/19 09:00 Aspirin 81 mg PO DAILY Citalopram [Celexa] 40 mg PO DAILY Furosemide [Lasix] 40 mg PO DAILY Remove Patch 1 ea TRDERM DAILY Simvastatin [Zocor] 40 mg PO DAILY lisinopriL [Prinivil] 40 mg PO DAILY 04/05/19 09:10 H PYLORI STOOL ANTIGEN [MREF] Routine 04/06/19 05:11 CBC WITH AUTO DIFF [HEME] AM CMP [COMPREHENSIVE METABOLIC PN,CMP] [CHEM] AM MAGNESIUM [CHEM] AM 04/07/19 05:11 CBC WITH AUTO DIFF [HEME] AM CMP [COMPREHENSIVE METABOLIC PN,CMP] [CHEM] AM MAGNESIUM [CHEM] AM 04/08/19 05:11 CBC WITH AUTO DIFF [HEME] AM CMP [COMPREHENSIVE METABOLIC PN,CMP] [CHEM] AM MAGNESIUM [CHEM] AM 04/09/19 05:11 CBC WITH AUTO DIFF [HEME] AM CMP [COMPREHENSIVE METABOLIC PN,CMP] [CHEM] AM MAGNESIUM [CHEM] AM - Plan Plan:: Assessment * Heart failure with preserved ejection fraction: CHF exacerbation with hypoxemia -improved, now off oxygen * proBNP 1498 on admission * CT angiogram consistent with mild CHF * History of noncompliance with diuretic * Received 40 mg IV Lasix in the ER with good results * Echocardiogram shows impaired relaxation (grade 1) pattern of LV diastolic filling. Left ventricular ejection fraction, by visual estimation, is 60 to 65% . * Viral respiratory tract infection * Symptoms are consistent with a viral respiratory tract infection, but also could be from her CHF. * Respiratory panel pending * [id number] history with history of chronic cough * She likely has COPD * History of being on inhalers * Anemia * Hemoglobin is down to 8.3 * Iron and percent saturation are both low. * Vitamin B12 pending * Patient states that the only episode of blood in her stool that she remembers was 2 years ago. She denies any black or tarry stools. * Sleep apnea * Patient on CPAP at night * Hypertension * On presentation to the ER 189/85 * On admission to the hospital 144/61 * Insulin-dependent diabetic * Glucose ranging from 206-103 * On glargine, Trulicity, glipizide, and metformin * Depression * On escitalopram at home Plan * Admit to medical floor on telemetry * Switch to Lasix 40 mg orally today * Increased to full dose carvedilol tonight. Patient was on half dose due to acute exacerbation of heart failure * Nicotine patch offered, but refused * DuoNeb and albuterol nebulizer as needed * Slight increase in white count likely secondary to do marginalization from Solu-Medrol in the emergency room. * Respiratory panel -ending * Continue home CPAP * Monitor vitals * Reconcile home meds * If we get home Trulicity will give dose today. * Continue glargine at 75% and cover with sliding scale * Hold glipizide, and metformin * CBC, CMP, magnesium in the morning * Stool for occult blood * Stool H pylori antigen * VTE prophylaxis with SCDs anemia * CODE STATUS: Full code * Plan discharge for tomorrow. Echocardiogram: Summary: Impaired relaxation (grade 1) pattern of LV diastolic filling. Mild concentric left ventricular hypertrophy. Left ventricular ejection fraction, by visual estimation, is 60 to 65%. No other significant findings on transthoracic echocardiogram.
[2019-04-05] MEDS ORDERED: Magnesium Hydroxide 400 MG/5 ML Susp 30 ML Cup PO ONE (11:58)
[2019-04-05] MEDS: Insulin Glarg,Human.Rec.Analog 100 Unit/ML SUBCUT SCH (12:18)
[2019-04-05] MEDS ORDERED: DULAGLUTIDE 0.75 MG SUBCUT SCH ×2 (16:06→16:15)
[2019-04-05 21:42] LABS: BORDETELLA PARAPERT IS1001 Not Detected (Not Detected)
[2019-04-05] MEDS: traZODone 50 MG Tab PO PRN (22:37)
[2019-04-06] MEDS: Insulin Lispro 100 Units/ML 3 ML Vial SUBCUT SCH ×2 (06:46→12:36)
[2019-04-06] MEDS: Lisinopril 20 MG Tab PO SCH (08:26)
[2019-04-06] MEDS: Citalopram 20 MG Tab PO SCH (08:26)
[2019-04-06] MEDS: Carvedilol 12.5 MG Tab PO SCH (08:27)
[2019-04-06] MEDS: Aspirin 81 MG Tab.Chew PO SCH (08:27)
[2019-04-06] MEDS: Simvastatin 40 MG Tab PO SCH (08:27)
[2019-04-06] MEDS ORDERED: Furosemide 20 MG Tab PO SCH (09:00)
--- NOTE | 2019-04-06 11:56 | PCM.DCSUM1 ---
Discharge Summary - Hospital Course HPI Initial Comments: Loly presented to the emergency room last night with chief complaint of "could not breathe." Patient states that last night she was congested, had nasal mucus, was coughing and could not stop. Called EMS because she could not breathe and when they arrived at her home oxygen saturations were 68%. Patient received 2 breathing treatments and placed on oxygen. She denies any history of COPD or asthma, but states last year she had a "lung flu" and she has had a cough ever since. She smokes 1/2 pack/day for the last 40 years. She states that she has been on inhalers. Patient denies any fever, chills, night sweats, chest pain, dyspnea on exertion, or PND. 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 Patient was very confused about her medication and stated over again that her knows why she is on her medications. In the emergency room a CT of the chest was performed after a positive d-dimer which found findings within both lungs suggesting mild pulmonary vascular congestion. Heart is enlarged and please correlate if clinical symptoms suggest mild CHF. She was given 40 mg of IV Lasix, Solu-Medrol, magnesium, and DuoNeb. Patient is feeling much better this morning and oxygen saturations have improved. Emergency room labs: WBC 12.88, hemoglobin 8.9, platelets 424, MCV 82.8 and MCH 23.9. pH 7.30, PCO2 47.1, PO2 117.0, HCO3 22.3, on 7 L simple mask with FiO2 of 40%. Troponin 0 0.021, C-reactive protein 0.4, BNP 1498, d-dimer 0.95, negative lactic acid Diagnosis: Stroke: No - Discharge Data Discharge Date: 04/06/19 Discharge Disposition: Home, Self-Care 01 Condition: Good - Referral to Home Health Primary Care Physician: PCP None - Patient Summary/Data Hospital Course: Patient was admitted for acute exacerbation of heart failure. Echocardiogram was performed and found grade 1 diastolic dysfunction with preserved ejection fraction. Patient was diuresed with furosemide and will go home on 20 mg orally. If she gains 5 pounds she has been told to double the dose and call her primary care provider. She was sent home on her home blood pressure medication. We did stop her aspirin because she was found to have iron deficiency anemia on admission. On admission her hemoglobin was 8.9 and it stayed stable during entire hospitalization. Stool was tested for occult blood and was positive. H. pylori antigen was negative. She was given IV iron in the hospital, but will need ricci endoscopic evaluation. Patient also was found to have coronavirus. She did have a mild cough while hospitalized. This is likely a contributing factor to her exacerbation of heart failure requiring oxygen. She was told that she will remain symptomatic for another week or so and contagious for several more days. - Patient Instructions Diet: Heart Healthy Diet Activity: As Tolerated Driving: May Drive Today, Do Not Drive Showering/Bathing: May Shower Other/Special Instructions: Echocardiogram found you to have mild diastolic heart dysfunction. The best treatment is weight loss and blood pressure control. Furosemide 20 mg in the morning was added to your medications. Weigh yourself daily and if you have a 5 pound weight gain double your dose of furosemide and call your primary care provider. You were also found to have iron deficiency anemia. Blood was found in your stool. During her hospitalization you were given IV iron. Please follow-up with your primary care provider to make arrangements to have an upper and lower endoscopy. A stool evaluation for H. pylori was negative. Stop aspirin until further evaluation with a upper and lower endoscopy. Start pantoprazole 40 mg daily in the morning before breakfast. You were also found to have a positive coronavirus which is a cause of the common cold. Presume that you are infectious until early next week. Follow-up with your primary care provider next week. - Discharge Plan *PRESCRIPTION DRUG MONITORING PROGRAM REVIEWED*: No *COPY OF PRESCRIPTION DRUG MONITORING REPORT IN PATIENT NORMA: No Prescriptions/Med Rec: Furosemide [Lasix] 20 mg PO DAILY #30 tablet Nicotine [Habitrol] 14 mg TRDERM DAILY #30 patch Pantoprazole [ProTONIX] 40 mg PO DAILY #30 tab.cr Home Medications: Home Meds Carvedilol [Coreg] 25 mg PO BID 01/22/15 [History] Insulin Glarg,Human.Rec.Analog [LantUS Solostar] 52 units SUBCUT 1300 01/22/15 [ History] Lisinopril 40 mg PO DAILY 01/22/15 [History] Simvastatin [Zocor] 40 mg PO DAILY 01/22/15 [History] Zolpidem [Ambien] 10 mg PO BEDTIME PRN 01/22/15 [History] glipiZIDE [Glipizide ER] 10 mg PO BID 01/22/15 [History] metFORMIN [Glucophage] 1,000 mg PO BID 01/22/15 [History] traZODone 50 mg PO BEDTIME PRN 01/22/15 [History] All Natural Vitamin Pack 01/13/16 [History] Dulaglutide [Trulicity] 0.75 mg SUBCUT WEEKLY 04/03/19 [History] Escitalopram [Lexapro] 20 mg PO DAILY 04/04/19 [History] Acetaminophen [Tylenol] 650 mg PO Q4H PRN tablet 04/06/19 [Rx] Furosemide [Lasix] 20 mg PO DAILY #30 tablet 04/06/19 [Rx] Nicotine [Habitrol] 14 mg TRDERM DAILY #30 patch 04/06/19 [Rx] Pantoprazole [ProTONIX] 40 mg PO DAILY #30 tab.cr 04/06/19 [Rx] Oxygen Therapy Mode: Room Air Patient Handouts: Heart Failure, Steps to Quit Smoking Referrals: Trev Agarwal MD [Physician] - - Discharge Summary/Plan Comment DC Time >30 min.: Yes Discharge Summary/Plan Comment: Start furosemide 20 mg daily. Start pantoprazole 40 mg daily. Stop aspirin. Follow-up with primary care provider for heart failure with preserved ejection fraction and iron deficiency anemia. Follow-up with primary care provider next week. - General Info Date of Service: 04/06/19 Admission Dx/Problem (Free Text: Admission Diagnosis/Problem Admission Diagnosis/Problem Hypoxia Subjective Update: Patient is doing well and feeling better. She denies any pain. Functional Status: Reports: Pain Controlled - Review of Systems General: Reports: No Symptoms HEENT: Reports: No Symptoms Pulmonary: Reports: No Symptoms Cardiovascular: Reports: No Symptoms Musculoskeletal: Reports: No Symptoms - Patient Data Vitals - Most Recent: Last Vital Signs Temp 98.2 F 04/06/19 07:48 Pulse 71 04/06/19 08:27 Resp 24 H 04/06/19 07:48 BP 138/82 04/06/19 08:27 Pulse Ox 90 L 04/06/19 07:48 Weight - Most Recent: 264 lb 9.6 oz I&O - Last 24 hours: Intake & Output 04/05/19 04/06/19 04/06/19 22:59 06:59 14:59 Intake Total 900 800 180 Output Total 1300 1050 Balance -400 -250 180 Lab Results - Last 24 hrs: Laboratory Results - last 24 hr 04/04/19 04/05/19 04/05/19 Range/Units 14:36 16:59 17:24 WBC (3.98-10.04) K/mm3 RBC (3.98-5.22) M/mm3 Hgb 9.0 L (11.2-15.7) gm/dl Hct 30.9 L (34.1-44.9) % MCV (79.4-94.8) fl MCH (25.6-32.2) pg MCHC (32.2-35.5) g/dl RDW Std Deviation (36.4-46.3) fL Plt Count (182-369) K/mm3 MPV (9.4-12.3) fl Neut % (Auto) (34.0-71.1) % Lymph % (Auto) (19.3-51.7) % [place] % (Auto) (4.7-12.5) % Eos % (Auto) (0.7-5.8) Baso % (Auto) (0.1-1.2) % Neut # (Auto) (1.56-6.13) K/mm3 Lymph # (Auto) (1.18-3.74) K/mm3 [place] # (Auto) (0.24-0.36) K/mm3 Eos # (Auto) (0.04-0.36) K/mm3 Baso # (Auto) (0.01-0.08) K/mm3 Manual Slide Review Sodium (136-145) mEq/L Potassium (3.5-5.1) mEq/L Chloride (98-107) mEq/L Carbon Dioxide (21-32) mEq/L Anion Gap (5-15) BUN (7-18) mg/dL Creatinine (0.55-1.02) mg/dL Est Cr Clr Drug Dosing mL/min Estimated GFR (MDRD) (>60) mL/min BUN/Creatinine Ratio (14-18) Glucose (74-106) mg/dL POC Glucose 125 H (70-105) mg/dL Calcium (8.5-10.1) mg/dL Magnesium (1.8-2.4) mg/dl Total Bilirubin (0.2-1.0) mg/dL AST (15-37) U/L ALT (14-59) U/L Alkaline Phosphatase (46-116) U/L Total Protein (6.4-8.2) g/dl Albumin (3.4-5.0) g/dl Globulin gm/dL Albumin/Globulin Ratio (1-2) Adenovirus (PCR) Not detected (Not Detected) B. pertussis DNA (PCR) Not detected (Not Detected) B.parapertussis DNA PCR Not detected (Not Detected) C. pneumoniae DNA (PCR) Not detected (Not Detected) Coronavirus (PCR) Detected H (Not Detected) Human Metapneumovir PCR Not detected (Not Detected) Influenza A (RT-PCR) Not detected (Not Detected) Influenza B (RT-PCR) Not detected (Not Detected) M. pneumoniae (PCR) Not detected (Not Detected) Parainfluen 1,2,3,4 PCR Not detected (Not Detected) RSV (PCR) Not detected (Not Detected) Entero/Rhino (PCR) Not detected (Not Detected) 04/05/19 04/06/19 04/06/19 Range/Units 20:46 06:14 06:15 WBC 6.96 (3.98-10.04) K/mm3 RBC 3.82 L (3.98-5.22) M/mm3 Hgb 9.0 L (11.2-15.7) gm/dl Hct 31.2 L (34.1-44.9) % MCV 81.7 (79.4-94.8) fl MCH 23.6 L (25.6-32.2) pg MCHC 28.8 L (32.2-35.5) g/dl RDW Std Deviation 55.7 H (36.4-46.3) fL Plt Count 387 H (182-369) K/mm3 MPV 10.8 (9.4-12.3) fl Neut % (Auto) 47.2 (34.0-71.1) % Lymph % (Auto) 38.5 (19.3-51.7) % [place] % (Auto) 12.9 H (4.7-12.5) % Eos % (Auto) 0.7 (0.7-5.8) Baso % (Auto) 0.6 (0.1-1.2) % Neut # (Auto) 3.28 (1.56-6.13) K/mm3 Lymph # (Auto) 2.68 (1.18-3.74) K/mm3 [place] # (Auto) 0.90 H (0.24-0.36) K/mm3 Eos # (Auto) 0.05 (0.04-0.36) K/mm3 Baso # (Auto) 0.04 (0.01-0.08) K/mm3 Manual Slide Review Abnormal smear Sodium (136-145) mEq/L Potassium (3.5-5.1) mEq/L Chloride (98-107) mEq/L Carbon Dioxide (21-32) mEq/L Anion Gap (5-15) BUN (7-18) mg/dL Creatinine (0.55-1.02) mg/dL Est Cr Clr Drug Dosing mL/min Estimated GFR (MDRD) (>60) mL/min BUN/Creatinine Ratio (14-18) Glucose (74-106) mg/dL POC Glucose 169 H 127 H (70-105) mg/dL Calcium (8.5-10.1) mg/dL Magnesium (1.8-2.4) mg/dl Total Bilirubin (0.2-1.0) mg/dL AST (15-37) U/L ALT (14-59) U/L Alkaline Phosphatase (46-116) U/L Total Protein (6.4-8.2) g/dl Albumin (3.4-5.0) g/dl Globulin gm/dL Albumin/Globulin Ratio (1-2) Adenovirus (PCR) (Not Detected) B. pertussis DNA (PCR) (Not Detected) B.parapertussis DNA PCR (Not Detected) C. pneumoniae DNA (PCR) (Not Detected) Coronavirus (PCR) (Not Detected) Human Metapneumovir PCR (Not Detected) Influenza A (RT-PCR) (Not Detected) Influenza B (RT-PCR) (Not Detected) M. pneumoniae (PCR) (Not Detected) Parainfluen 1,2,3,4 PCR (Not Detected) RSV (PCR) (Not Detected) Entero/Rhino (PCR) (Not Detected) 04/06/19 04/06/19 Range/Units 06:15 11:05 WBC (3.98-10.04) K/mm3 RBC (3.98-5.22) M/mm3 Hgb (11.2-15.7) gm/dl Hct (34.1-44.9) % MCV (79.4-94.8) fl MCH (25.6-32.2) pg MCHC (32.2-35.5) g/dl RDW Std Deviation (36.4-46.3) fL Plt Count (182-369) K/mm3 MPV (9.4-12.3) fl Neut % (Auto) (34.0-71.1) % Lymph % (Auto) (19.3-51.7) % [place] % (Auto) (4.7-12.5) % Eos % (Auto) (0.7-5.8) Baso % (Auto) (0.1-1.2) % Neut # (Auto) (1.56-6.13) K/mm3 Lymph # (Auto) (1.18-3.74) K/mm3 [place] # (Auto) (0.24-0.36) K/mm3 Eos # (Auto) (0.04-0.36) K/mm3 Baso # (Auto) (0.01-0.08) K/mm3 Manual Slide Review Sodium 139 (136-145) mEq/L Potassium 4.3 (3.5-5.1) mEq/L Chloride 103 (98-107) mEq/L Carbon Dioxide 26 (21-32) mEq/L Anion Gap 14.3 (5-15) BUN 15 (7-18) mg/dL Creatinine 0.8 (0.55-1.02) mg/dL Est Cr Clr Drug Dosing 68.97 mL/min Estimated GFR (MDRD) > 60 (>60) mL/min BUN/Creatinine Ratio 18.8 H (14-18) Glucose 130 H (74-106) mg/dL POC Glucose 182 H (70-105) mg/dL Calcium 8.7 (8.5-10.1) mg/dL Magnesium 2.2 (1.8-2.4) mg/dl Total Bilirubin 0.2 (0.2-1.0) mg/dL AST 102 H (15-37) U/L ALT 58 (14-59) U/L Alkaline Phosphatase 82 (46-116) U/L Total Protein 7.0 (6.4-8.2) g/dl Albumin 3.1 L (3.4-5.0) g/dl Globulin 3.9 gm/dL Albumin/Globulin Ratio 0.8 L (1-2) Adenovirus (PCR) (Not Detected) B. pertussis DNA (PCR) (Not Detected) B.parapertussis DNA PCR (Not Detected) C. pneumoniae DNA (PCR) (Not Detected) Coronavirus (PCR) (Not Detected) Human Metapneumovir PCR (Not Detected) Influenza A (RT-PCR) (Not Detected) Influenza B (RT-PCR) (Not Detected) M. pneumoniae (PCR) (Not Detected) Parainfluen 1,2,3,4 PCR (Not Detected) RSV (PCR) (Not Detected) Entero/Rhino (PCR) (Not Detected) WALT Results - Last 24 hrs: Microbiology 04/03/19 23:30 Aerobic Blood Culture - Preliminary Blood - Venous - Lab Draw NO GROWTH AFTER 2 DAYS Anaerobic Blood Culture - Preliminary NO GROWTH AFTER 2 DAYS 04/03/19 23:20 Aerobic Blood Culture - Preliminary Blood - Venous NO GROWTH AFTER 2 DAYS Anaerobic Blood Culture - Preliminary NO GROWTH AFTER 2 DAYS 04/05/19 14:45 Helicobacter pylori Antigen - Final Stool / Feces NEGATIVE H. PYLORI AG REFERENCE RANGE: NEGATIVE 04/05/19 14:45 Occult Blood - Preliminary Stool / Feces Med Orders - Current: Current Medications Acetaminophen (Tylenol) 650 mg PO Q4H PRN PRN Reason: Pain (Mild 1-3)/fever Albuterol (Proventil Neb Soln) 2.5 mg NEB Q2H PRN PRN Reason: Shortness Of Breath/wheezing Albuterol/Ipratropium (Duoneb 3.0-0.5 Mg/3 Ml) 3 ml NEB Q4H PRN PRN Reason: Shortness Of Breath/wheezing Last Admin: 04/05/19 05:18 Dose: 3 ml Aspirin (Aspirin) 81 mg PO DAILY ELY Last Admin: 04/06/19 08:27 Dose: 81 mg Benzonatate (Tessalon Perles) 100 mg PO TID PRN PRN Reason: Cough Last Admin: 04/04/19 16:48 Dose: 100 mg Carvedilol (Coreg) 25 mg PO BID [facility] Last Admin: 04/06/19 08:27 Dose: 25 mg Citalopram Hydrobromide (Celexa) 40 mg PO DAILY [facility] Last Admin: 04/06/19 08:26 Dose: 40 mg Dextrose/Water (Dextrose 50% In Water) 50 ml IVPUSH ASDIRECTED PRN PRN Reason: Hypoglycemia Furosemide (Lasix) 20 mg PO DAILY [facility] Last Admin: 04/06/19 08:26 Dose: 20 mg Insulin Glargine (Lantus) 40 unit SUBCUT Q24H [facility] Last Admin: 04/05/19 12:18 Dose: 40 units Insulin Human Lispro (Humalog) 0 unit SUBCUT QIDACANDBED [facility]; Protocol Last Admin: 04/06/19 06:46 Dose: Not Given Lisinopril (Prinivil) 40 mg PO DAILY [facility] Last Admin: 04/06/19 08:26 Dose: 40 mg Miscellaneous Information (Remove Patch) 1 ea TRDERM DAILY [facility] Last Admin: 04/06/19 08:36 Dose: Not Given Nicotine (Habitrol) 14 mg TRDERM DAILY [facility] Last Admin: 04/05/19 22:49 Dose: 14 mg Dulaglutide [ Trulicity] 0.75 Mg * *Pt's Own Medication 0 mg SUBCUT Th [facility] Last Admin: 04/05/19 16:54 Dose: 0.75 mg Ondansetron HCl (Zofran) 4 mg IV Q4H PRN PRN Reason: Nausea/Vomiting Simvastatin (Zocor) 40 mg PO DAILY [facility] Last Admin: 04/06/19 08:27 Dose: 40 mg Sodium Chloride (Saline Flush) 10 ml FLUSH ASDIRECTED PRN PRN Reason: Keep Vein Open Trazodone HCl (Trazodone) 50 mg PO BEDTIME PRN PRN Reason: Insomnia Last Admin: 04/05/19 22:37 Dose: 50 mg Zolpidem Tartrate (Ambien) 10 mg PO BEDTIME PRN PRN Reason: Insomnia Last Admin: 04/04/19 21:22 Dose: 10 mg Discontinued Medications Albuterol/Ipratropium (Duoneb 3.0-0.5 Mg/3 Ml) 3 ml NEB ONETIME ONE Stop: 04/03/19 21:54 Last Admin: 04/03/19 22:14 Dose: 3 ml Albuterol/Ipratropium (Duoneb 3.0-0.5 Mg/3 Ml) 3 ml NEB Q6HRRT [facility] Last Admin: 04/04/19 08:21 Dose: 3 ml Carvedilol (Coreg) 12.5 mg PO BID [facility] Last Admin: 04/05/19 09:25 Dose: 12.5 mg Furosemide (Lasix) 40 mg IVPUSH NOW ONE Stop: 04/04/19 00:40 Last Admin: 04/04/19 00:48 Dose: 40 mg Furosemide (Lasix) 20 mg IVPUSH ONETIME ONE Stop: 04/04/19 12:01 Last Admin: 04/04/19 12:46 Dose: 20 mg Furosemide (Lasix) 40 mg PO DAILY [facility] Last Admin: 04/05/19 09:24 Dose: 40 mg Magnesium Sulfate/Dextrose 1 (gm/ Premix) 100 mls @ 100 mls/hr IV Q1H [facility] Stop: 04/03/19 23:59 Last Admin: 04/03/19 23:57 Dose: 100 mls/hr Vancomycin HCl 2 gm/ Dextrose/ (Water) 250 mls @ 167 mls/hr IV ONETIME ONE Stop: 04/04/19 01:09 Last Admin: 04/04/19 00:45 Dose: Not Given Ferric Sodium Gluconate Complex 250 mg/ Sodium Chloride 120 mls @ 50 mls/hr IV ONETIME ONE Stop: 04/06/19 10:23 Last Admin: 04/06/19 08:19 Dose: 50 mls/hr Lisinopril (Prinivil) 40 mg PO ONETIME ONE Stop: 04/04/19 10:57 Last Admin: 04/04/19 12:45 Dose: 40 mg Magnesium Hydroxide (Milk Of Magnesia) 30 ml PO ONETIME ONE Stop: 04/05/19 11:59 Last Admin: 04/05/19 12:21 Dose: 30 ml Methylprednisolone Sodium Succinate (Solu-Medrol) 125 mg IVPUSH ONETIME ONE Stop: 04/03/19 21:55 Last Admin: 04/03/19 22:08 Dose: 125 mg Nicotine (Habitrol) 14 mg TRDERM DAILY [facility] Last Admin: 04/05/19 09:30 Dose: Not Given Dulaglutide [ Trulicity] 0.75 Mg * *Pt's Own Medication 0 mg SUBCUT [facility] Potassium Chloride (Klor-Con M20) 40 meq PO ONETIME ONE Stop: 04/05/19 09:01 Last Admin: 04/05/19 09:26 Dose: 40 meq Sodium Chloride (Saline Flush) 10 ml FLUSH ASDIRECTED PRN PRN Reason: Keep Vein Open - Exam General: Reports: Alert, Oriented HEENT: Reports: Pupils Equal, Pupils Reactive, EOMI, Mucous Membr. Moist/[place] Neck: Reports: Supple Lungs: Reports: Clear to Auscultation, Normal Respiratory Effort Cardiovascular: Reports: Regular Rate, Regular Rhythm GI/Abdominal Exam: Normal Bowel Sounds, Soft, Non-Tender, No Organomegaly Rectal (Female) Exam: Normal Exam Extremities: Normal Inspection, Normal Range of Motion, Non-Tender, No Pedal Edema, Normal Capillary Refill Skin: Reports: Warm, Dry, Intact Psy/Mental Status: Reports: Alert, Normal Affect, Normal Mood
[2019-04-06] MEDS: Nicotine 14 MG/24 Hr Patch TRDERM SCH (12:28)
[2019-04-06] MEDS: Insulin Glarg,Human.Rec.Analog 100 Unit/ML SUBCUT SCH (12:37)
[2019-04-06 17:58] VITALS: BP 117/48; PULSE 62
== END 2019-04-06 16:23 | disposition home or self-care (01) | DRG 194 ==
LOC: JD.ED 21:52 → JD.MS 04-04 00:56
PROVIDERS: ADMIT Internal Medicine; ATTEND Internal Medicine
DX: I11.0 Hypertensive heart disease with heart failure (principal); E66.01 Morbid (severe) obesity due to excess calories; Z68.42 Body mass index [BMI] 45.0-49.9, adult; I50.33 Acute on chronic diastolic (congestive) heart failure; D50.9 Iron deficiency anemia, unspecified; J98.8 Other specified respiratory disorders; E78.00 Pure hypercholesterolemia, unspecified; J44.9 Chronic obstructive pulmonary disease, unspecified; G47.30 Sleep apnea, unspecified; M19.90 Unspecified osteoarthritis, unspecified site; G89.29 Other chronic pain; R51 Headache; F41.9 Anxiety disorder, unspecified; F32.9 Major depressive disorder, single episode, unspecified; E11.9 Type 2 diabetes mellitus without complications; F17.210 Nicotine dependence, cigarettes, uncomplicated; H54.7 Unspecified visual loss; K63.89 Other specified diseases of intestine; R79.1 Abnormal coagulation profile; Z91.19 Patient's noncompliance with other medical treatment and regimen; Z79.4 Long term (current) use of insulin; Z79.899 Other long term (current) drug therapy; Z88.1 Allergy status to other antibiotic agents; Z88.8 Allergy status to other drugs, medicaments and biological substances; Z79.82 Long term (current) use of aspirin; Z87.442 Personal history of urinary calculi; Z90.49 Acquired absence of other specified parts of digestive tract
CPT/HCPCS: 36415; 36600; 71045; 71045-26; 71275; 71275-26; 80053; 82270; 82607; 82728; 82803; 82962; 83036; 83540; 83605; 83735; 83880; 84466; 84484; 85014; 85018; 85025; 85379; 85610; 86140; 87040; 87338; 87486; 87581; 87632; 87798; 87804; 93005; 93010; 93306; 94640; 94761; 96365; 96366; 96375; 99222; 99232; 99239; 99284; 99285-25; A9270-GY; J1815-GY; J1940; J2916; J2930; J3475; J7050; J7620-GY

== ENCOUNTER 2019-05-16 19:19 | Emergency (ER) | payer BC ==
[2019-05-16 19:28] VITALS: BP 187/67; PULSE 86
[2019-05-16] MEDS ORDERED: Sodium Chloride 0.9% 10 ML Syringe FLUSH PRN ×2 (19:32→20:33)
[2019-05-16] MEDS ORDERED: Albuterol/Ipratropium 3.0-0.5 MG/3 ML Neb Soln NEB ONE (19:34)
[2019-05-16] MEDS ORDERED: methylPREDNISolone Sodium Succinate 125 MG/2 ML SDV IVPUSH ONE (19:34)
--- NOTE | 2019-05-16 19:48 | EDM.PDOC ---
ED HPI GENERAL MEDICAL PROBLEM - General Chief Complaint: Respiratory Problem Stated Complaint: chest pain Time Seen by Provider: 05/16/19 19:21 Source of Information: Reports: Patient History Limitations: Reports: No Limitations - History of Present Illness INITIAL COMMENTS - FREE TEXT/NARRATIVE: The patient presents with chest pain and shortness of breath. She said this started today. She had a colonoscopy and EGD yesterday. She was told she has CHF. She was admitted to the hospital a few weeks ago for the same. She said the colonoscopy went good. She does smoke. She has no history of COPD but she is going to be tested for it. She has no fever or chills. She does have a cough. She has some chest tightness. She has no more swelling then normal. She has no abdominal pain, nausea or vomiting. Onset: Gradual Duration: Hour(s): Location: Reports: Chest Quality: Reports: Other (Tightness) Severity: Mild Improves with: Reports: None Worsens with: Reports: None Associated Symptoms: Reports: Chest Pain, Cough, Shortness of Breath. Denies: Fever/Chills, Headaches, Nausea/Vomiting Left Chest Pain Score (Numeric/FACES): 5 - Related Data Allergies Allergy/AdvReac Type Severity Reaction Status Date / Time amoxicillin [From Augmentin] Allergy Airway Verified 05/16/19 19:28 Tightness cephalexin Allergy Airway Verified 05/16/19 19:28 Tightness clavulanic acid Allergy Airway Verified 05/16/19 19:28 [From Augmentin] Tightness enoxaparin [From Lovenox] AdvReac Bradycardia Verified 05/16/19 19:28 Macrolide Antibiotics AdvReac Hallucinati Verified 05/16/19 19:28 ons antibiotic Allergy Airway Uncoded 05/16/19 19:28 Tightness Home Meds: Home Meds Carvedilol [Coreg] 25 mg PO BID 01/22/15 [History] Insulin Glarg,Human.Rec.Analog [LantUS Solostar] 52 units SUBCUT 1300 01/22/15 [ History] Lisinopril 40 mg PO DAILY 01/22/15 [History] Simvastatin [Zocor] 40 mg PO DAILY 01/22/15 [History] Zolpidem [Ambien] 10 mg PO BEDTIME PRN 01/22/15 [History] glipiZIDE [Glipizide ER] 10 mg PO BID 01/22/15 [History] metFORMIN [Glucophage] 1,000 mg PO BID 01/22/15 [History] traZODone 50 mg PO BEDTIME PRN 01/22/15 [History] All Natural Vitamin Pack 1 tab PO DAILY 01/13/16 [History] Dulaglutide [Trulicity] 0.75 mg SUBCUT WEEKLY 04/03/19 [History] Escitalopram [Lexapro] 20 mg PO DAILY 04/04/19 [History] Acetaminophen [Tylenol] 650 mg PO Q4H PRN tablet 04/06/19 [Rx] Furosemide [Lasix] 20 mg PO DAILY #30 tablet 04/06/19 [Rx] Nicotine [Habitrol] 14 mg TRDERM DAILY #30 patch 04/06/19 [Rx] Pantoprazole [ProTONIX] 40 mg PO DAILY #30 tab.cr 04/06/19 [Rx] predniSONE [Prednisone] 40 mg PO DAILY #10 tablet 05/16/19 [Rx] Past Medical History Other HEENT History: wears upper dentures, glasses Cardiovascular History: Reports: Heart Failure, High Cholesterol, Hypertension, SOB on Exertion Respiratory History: Reports: COPD, Sleep Apnea, SOB Other Respiratory History: chronic cough Gastrointestinal History: Reports: Diverticulosis, Other (See Below) Other Gastrointestinal History: melanosis coli Genitourinary History: Reports: Renal Calculus 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 History: bilateral partial oophorectomy (has 1/4 of 1 ovary) Musculoskeletal History: Reports: Arthritis, Other (See Below) Other Musculoskeletal History: joint pain Neurological History: Reports: Headaches, Chronic Other Neuro History: fatigue Psychiatric History: Reports: Anxiety, Depression Endocrine/Metabolic History: Reports: Diabetes, Type II - Infectious Disease History Infectious Disease History: Reports: C-Difficile, Chicken Pox - Past Surgical History Cardiovascular Surgical History: Reports: None Respiratory Surgical History: Reports: None GI Surgical History: Reports: Appendectomy, Cholecystectomy, Colonoscopy, Hernia Repair/Other Female Surgical History: Reports: Section, Oophorectomy Neurological Surgical History: Reports: None Musculoskeletal Surgical History: Reports: None Social & Family History - Family History Family Medical History: Noncontributory HEENT: Reports: None Cardiac: Reports: [place] Respiratory: Reports: None GI: Reports: None : Reports: None Psychiatric: Reports: None Endocrine/Metabolic: Reports: IDDM Other Endocrine/Metabolic Family History: Alpha1 antitripsin deficiency - Tobacco Use Smoking Status *Q: Current Every Day Smoker Years of Tobacco use: 42 Packs/Tins Daily: 0.5 - Caffeine Use Caffeine Use: Reports: Coffee, Soda - Recreational Drug Use Recreational Drug Use: No - Living Situation & Occupation Living situation: Reports: with Spouse Occupation: Employed ED ROS GENERAL - Review of Systems Review Of Systems: See Below Constitutional: Reports: No Symptoms HEENT: Reports: No Symptoms Respiratory: Reports: Shortness of Breath, Cough Cardiovascular: Reports: Chest Pain Endocrine: Reports: No Symptoms GI/Abdominal: Reports: No Symptoms : Reports: No Symptoms Musculoskeletal: Reports: No Symptoms ED EXAM, GENERAL - Physical Exam Exam: See Below Exam Limited By: No Limitations General Appearance: Alert, No Apparent Distress Ears: Normal External Exam Nose: Normal Inspection Head: Atraumatic, Normocephalic Neck: Normal Inspection Respiratory/Chest: No Respiratory Distress, Decreased Breath Sounds Cardiovascular: Regular Rate, Rhythm, No Edema, No Murmur GI/Abdominal: Soft, Non-Tender, No Organomegaly, No Mass Back Exam: Normal Inspection Extremities: Normal Inspection EKG INTERPRETATION EKG Date: 05/16/19 Time: 19:22 Rhythm: NSR Rate (Beats/Min): 86 [place]: Normal P-Wave: Present QRS: Normal ST-T: Normal QT: Normal Course - Vital Signs Last Recorded V/S: Last Vital Signs Temp 97.3 F 05/16/19 19:25 Pulse 86 05/16/19 19:25 Resp 24 H 05/16/19 19:25 BP 187/67 H 05/16/19 19:25 Pulse Ox 95 05/16/19 19:34 - Orders/Labs/Meds Orders: Active Orders 24 hr Category Date Time Status Cardiac Monitoring [RC] . DIRECTED Care 05/16/19 19:33 Active EKG Documentation Completion [RC] STAT Care 05/16/19 19:33 Active Oxygen Therapy [RC] PRN Care 05/16/19 19:33 Active Peripheral IV Care [RC] . DIRECTED Care 05/16/19 19:33 Active RT Aerosol Therapy [RC] ASDIRECTED Care 05/16/19 19:34 Active Ang Chest [CT] Stat Exams 05/16/19 20:07 Taken Chest 2V [CR] Stat Exams 05/16/19 19:33 Taken Sodium Chloride 0.9% [Normal Saline] 45 ml Med 05/16/19 20:45 Active IV ASDIRECTED Sodium Chloride 0.9% [Saline Flush] Med 05/16/19 19:32 Active 10 ml FLUSH ASDIRECTED PRN Sodium Chloride 0.9% [Saline Flush] Med 05/16/19 20:33 Active 10 ml FLUSH ONETIME PRN Peripheral IV Insertion Adult [OM.PC] Stat Oth 05/16/19 19:32 Ordered Medication Orders Sodium Chloride (Normal Saline) 45 mls @ 40 mls/hr IV ASDIRECTED ELY Sodium Chloride (Saline Flush) 10 ml FLUSH ASDIRECTED PRN PRN Reason: Keep Vein Open Last Admin: 05/16/19 20:14 Dose: 10 ml Sodium Chloride (Saline Flush) 10 ml FLUSH ONETIME PRN PRN Reason: Keep Vein Open Labs: Laboratory Tests 05/16/19 05/16/19 05/16/19 Range/Units 19:27 19:27 19:27 WBC 13.53 H (3.98-10.04) K/mm3 RBC 4.57 (3.98-5.22) M/mm3 Hgb 11.9 D (11.2-15.7) gm/dl Hct 39.3 (34.1-44.9) % MCV 86.0 D (79.4-94.8) fl MCH 26.0 (25.6-32.2) pg MCHC 30.3 L (32.2-35.5) g/dl RDW Std Deviation 67.8 H (36.4-46.3) fL Plt Count 448 H (182-369) K/mm3 MPV 10.3 (9.4-12.3) fl Neut % (Auto) 53.9 (34.0-71.1) % Lymph % (Auto) 35.6 (19.3-51.7) % [place] % (Auto) 8.4 (4.7-12.5) % Eos % (Auto) 1.6 (0.7-5.8) Baso % (Auto) 0.3 (0.1-1.2) % Neut # (Auto) 7.31 H (1.56-6.13) K/mm3 Lymph # (Auto) 4.81 H (1.18-3.74) K/mm3 [place] # (Auto) 1.13 H (0.24-0.36) K/mm3 Eos # (Auto) 0.21 (0.04-0.36) K/mm3 Baso # (Auto) 0.04 (0.01-0.08) K/mm3 Manual Slide Review Abnormal smear D-Dimer, Quantitative 0.96 H (0.19-0.50) mg/L Sodium 142 (136-145) mEq/L Potassium 4.0 (3.5-5.1) mEq/L Chloride 106 (98-107) mEq/L Carbon Dioxide 27 (21-32) mEq/L Anion Gap 13.0 (5-15) BUN 11 (7-18) mg/dL Creatinine 0.8 (0.55-1.02) mg/dL Est Cr Clr Drug Dosing 66.19 mL/min Estimated GFR (MDRD) > 60 (>60) mL/min BUN/Creatinine Ratio 13.8 L (14-18) Glucose 135 H (74-106) mg/dL Calcium 9.1 (8.5-10.1) mg/dL Total Bilirubin 0.1 L (0.2-1.0) mg/dL AST 36 (15-37) U/L ALT 44 (14-59) U/L Alkaline Phosphatase 88 (46-116) U/L Troponin I < 0.017 (0.00-0.056) ng/mL NT-Pro-B Natriuret Pep (0-125) pg/mL Total Protein 7.4 (6.4-8.2) g/dl Albumin 3.3 L (3.4-5.0) g/dl Globulin 4.1 gm/dL Albumin/Globulin Ratio 0.8 L (1-2) 05/16/19 Range/Units 19:27 WBC (3.98-10.04) K/mm3 RBC (3.98-5.22) M/mm3 Hgb (11.2-15.7) gm/dl Hct (34.1-44.9) % MCV (79.4-94.8) fl MCH (25.6-32.2) pg MCHC (32.2-35.5) g/dl RDW Std Deviation (36.4-46.3) fL Plt Count (182-369) K/mm3 MPV (9.4-12.3) fl Neut % (Auto) (34.0-71.1) % Lymph % (Auto) (19.3-51.7) % Coles % (Auto) (4.7-12.5) % Eos % (Auto) (0.7-5.8) Baso % (Auto) (0.1-1.2) % Neut # (Auto) (1.56-6.13) K/mm3 Lymph # (Auto) (1.18-3.74) K/mm3 [place]es # (Auto) (0.24-0.36) K/mm3 Eos # (Auto) (0.04-0.36) K/mm3 Baso # (Auto) (0.01-0.08) K/mm3 Manual Slide Review D-Dimer, Quantitative (0.19-0.50) mg/L Sodium (136-145) mEq/L Potassium (3.5-5.1) mEq/L Chloride (98-107) mEq/L Carbon Dioxide (21-32) mEq/L Anion Gap (5-15) BUN (7-18) mg/dL Creatinine (0.55-1.02) mg/dL Est Cr Clr Drug Dosing mL/min Estimated GFR (MDRD) (>60) mL/min BUN/Creatinine Ratio (14-18) Glucose (74-106) mg/dL Calcium (8.5-10.1) mg/dL Total Bilirubin (0.2-1.0) mg/dL AST (15-37) U/L ALT (14-59) U/L Alkaline Phosphatase (46-116) U/L Troponin I (0.00-0.056) ng/mL NT-Pro-B Natriuret Pep 1037 H (0-125) pg/mL Total Protein (6.4-8.2) g/dl Albumin (3.4-5.0) g/dl Globulin gm/dL Albumin/Globulin Ratio (1-2) Meds: Medications Generic Name Dose Route Start Last Admin Trade Name Freq PRN Reason Stop Dose Admin Sodium Chloride 45 mls @ 40 mls/hr 05/16/19 20:45 Normal Saline IV ASDIRECTED ELY Sodium Chloride 10 ml 05/16/19 19:32 05/16/19 20:14 Saline Flush FLUSH 10 ml ASDIRECTED PRN Administration Keep Vein Open Sodium Chloride 10 ml 05/16/19 20:33 Saline Flush FLUSH ONETIME PRN Keep Vein Open Discontinued Medications Generic Name Dose Route Start Last Admin Trade Name Nikolayq PRN Reason Stop Dose Admin Albuterol/Ipratropium 3 ml 05/16/19 19:34 05/16/19 19:44 Duoneb 3.0-0.5 Mg/3 Ml NEB 05/16/19 19:35 3 ml ONETIME ONE Administration Diphenhydramine HCl 50 mg 05/16/19 20:57 05/16/19 21:10 Benadryl IVPUSH 05/16/19 20:58 50 mg ONETIME ONE Administration Iopamidol 100 ml 05/16/19 20:33 Isovue-300 (61%) IVPUSH 05/16/19 20:34 ONETIME ONE Iopamidol 50 ml 05/16/19 20:34 Isovue-300 (61%) IVPUSH 05/16/19 20:35 ONETIME ONE Methylprednisolone Sodium Succinate 125 mg 05/16/19 19:34 05/16/19 19:54 Solu-Medrol IVPUSH 05/16/19 19:35 125 mg ONETIME ONE Administration - Re-Assessments/Exams Free Text/Narrative Re-Assessment/Exam: 05/16/19 20:17 I ordered an IV saline lock, EKG, CXR, labs, duoneb, and solu-medrol 125mg IV. Her EKG shows a NSR with no acute changes. Her WBC was elevated at 13.53. Her platelets are elevated at 448. Her troponin is negative. Her BNP was up at 1037. Her D-dimer is elevated at 0.96. I have ordered a CT angio of her chest. 05/16/19 22:[address] of her chest shows no PE. Minor atelectasis and bronchial thickening in the left lower lung field, nonspecific. Nothing else. I think she has some reactive airways. I will keep her on the albuterol and I will get her on some prednisone. Departure - Departure Time of Disposition: 22:35 Disposition: Home, Self-Care 01 Condition: Good Clinical Impression: COPD (chronic obstructive pulmonary disease) Qualifiers: COPD type: unspecified COPD Qualified Code(s): J44.9 - Chronic obstructive pulmonary disease, unspecified - Discharge Information *PRESCRIPTION DRUG MONITORING PROGRAM REVIEWED*: Not Applicable *COPY OF PRESCRIPTION DRUG MONITORING REPORT IN PATIENT NORMA: Not Applicable Prescriptions: predniSONE [Prednisone] 40 mg PO DAILY #10 tablet Referrals: Trev Agarwal MD [Primary Care Provider] - 1 Week Forms: ED Department Discharge Additional Instructions: Take your medication as prescribed. Use the albuterol inhaler 2 puffs every 4 to 6 hours as needed for any shortness of breath. Follow up with Dr Conn within a week. Pleaser return if you are worse. Sepsis Event Note - Evaluation Sepsis Screening Result: No Definite Risk - Focused Exam Vital Signs: Vital Signs Temp Pulse Resp BP Pulse Ox Pulse Ox 05/16/19 19:34 95 05/16/19 19:25 97.3 F 86 24 H 187/67 H 95 Date Exam was Performed: 05/16/19 Time Exam was Performed: 22:31 - My Orders Last 24 Hours: My Active Orders 05/16/19 19:32 Sodium Chloride 0.9% [Saline Flush] 10 ml FLUSH ASDIRECTED PRN Peripheral IV Insertion Adult [OM.PC] Stat 05/16/19 19:33 Cardiac Monitoring [RC] . DIRECTED EKG Documentation Completion [RC] STAT Oxygen Therapy [RC] PRN Peripheral IV Care [RC] . DIRECTED Chest 2V [CR] Stat 05/16/19 19:34 RT Aerosol Therapy [RC] ASDIRECTED 05/16/19 20:07 Ang Chest [CT] Stat 05/16/19 20:33 Sodium Chloride 0.9% [Saline Flush] 10 ml FLUSH ONETIME PRN 05/16/19 20:45 Sodium Chloride 0.9% [Normal Saline] 45 ml IV ASDIRECTED - Assessment/Plan Last 24 Hours: My Active Orders 05/16/19 19:32 Sodium Chloride 0.9% [Saline Flush] 10 ml FLUSH ASDIRECTED PRN Peripheral IV Insertion Adult [OM.PC] Stat 05/16/19 19:33 Cardiac Monitoring [RC] . DIRECTED EKG Documentation Completion [RC] STAT Oxygen Therapy [RC] PRN Peripheral IV Care [RC] . DIRECTED Chest 2V [CR] Stat 05/16/19 19:34 RT Aerosol Therapy [RC] ASDIRECTED 05/16/19 20:07 Ang Chest [CT] Stat 05/16/19 20:33 Sodium Chloride 0.9% [Saline Flush] 10 ml FLUSH ONETIME PRN 05/16/19 20:45 Sodium Chloride 0.9% [Normal Saline] 45 ml IV ASDIRECTED
[2019-05-16] MEDS ORDERED: Iopamidol 612 MG/ML 100 ML Bottle IVPUSH ONE (20:33)
[2019-05-16] MEDS ORDERED: Iopamidol 612 MG/ML 50 ML SDV IVPUSH ONE (20:34)
[2019-05-16] MEDS ORDERED: Sodium Chloride 0.9% 45 ML IV SCH (20:45)
[2019-05-16] MEDS ORDERED: diphenhydrAMINE 50 MG/ML SDV IVPUSH ONE (20:57)
--- NOTE | 2019-05-17 07:06 | CR ---
Chest: Two views of the chest were obtained. Comparison: Prior chest x-ray of 04/03/19. Heart size and mediastinum are within normal limits. Lungs are clear with no acute parenchymal change. Bony structures show slight degenerative endplate spurring within the spine. Impression: 1. Nothing acute is appreciated on two-view chest x-ray. Diagnostic code #2 This report was dictated in MDT
--- NOTE | 2019-05-17 07:30 | CT ---
CT chest Technique: Multiple axial sections through the chest were obtained. Intravenous contrast was utilized. Study was performed as a pulmonary angiogram protocol. Comparison: Prior CT chest performed as a pulmonary angiogram protocol of 04/03/19. Findings: Pulmonary arteries not optimally opacified. No filling defects are seen within the main or segmental branches. Visualized upper abdominal structures show no discrete abnormality. No pericardial thickening is seen. Mild coronary artery calcification is seen. Atherosclerotic calcification is noted within the thoracic aorta without aneurysm. No mediastinal adenopathy or hilar adenopathy is seen. Lungs show no acute parenchymal change. Scattered degenerative endplate spurring is noted within the spine. No acute osseous finding is appreciated. Impression: 1. Pulmonary arteries not optimally opacified. No evidence of pulmonary embolism within the main or segmental branches. 2. Other findings believed to be incidental as noted above. Nothing acute is appreciated on CT study of the chest. Note: Heart size is less prominent than on previous exam with improved pulmonary vascular congestion from prior exam. Diagnostic code #2 This report was dictated in MDT I agree with preliminary report from [facility], finalized on 05/16/19, 11:27 PM Central Time
== END 2019-05-16 22:48 | disposition home or self-care (01) ==
LOC: JD.ED 19:19
DX: J44.9 Chronic obstructive pulmonary disease, unspecified (principal); E78.00 Pure hypercholesterolemia, unspecified; I11.0 Hypertensive heart disease with heart failure; I50.9 Heart failure, unspecified; F41.9 Anxiety disorder, unspecified; F32.9 Major depressive disorder, single episode, unspecified; F17.210 Nicotine dependence, cigarettes, uncomplicated; Z79.4 Long term (current) use of insulin; Z79.899 Other long term (current) drug therapy; Z88.1 Allergy status to other antibiotic agents; Z88.0 Allergy status to penicillin
CPT/HCPCS: 36415; 71046; 71275; 80053; 83880; 84484; 85025; 85379; 93005; 94640; 96374; 96375; 99285; J1200; J2930; 93010; 99284; J7620-GY

== ENCOUNTER 2020-08-12 16:22 | Observation (INO) | payer BC, OTHER, SELFPAY ==
--- NOTE | 2020-08-12 16:54 | EDM.PDOC ---
ED HPI GENERAL MEDICAL PROBLEM - General Chief Complaint: Neuro Symptoms/Deficits Stated Complaint: TROUBLE TALKING/TONGUE IS NUMB Time Seen by Provider: 08/12/20 16:25 - History of Present Illness INITIAL COMMENTS - FREE TEXT/NARRATIVE: 60-year-old female comes into the emergency department with difficulty speaking. This has been pretty consistent since about 4 PM this afternoon, however, was having intermittent symptoms prior to this that started around 2:00. The patient is not having difficulty walking and she is not aware of any weakness that is new and any of her extremities. The patient had to stop working because she can no longer communicate with people at work. Patient describes her tongue sensation as it fell asleep. Patient denies any other complaints at this time patient is on insulin for difficult to control type 2 diabetes. She has COPD and significant obesity. - Related Data Allergies Allergy/AdvReac Type Severity Reaction Status Date / Time amoxicillin [From Augmentin] Allergy Severe Airway Verified 08/12/20 16:33 Tightness cephalexin Allergy Severe Airway Verified 08/12/20 16:33 Tightness clavulanic acid Allergy Severe Airway Verified 08/12/20 16:33 [From Augmentin] Tightness enoxaparin [From Lovenox] AdvReac Severe Bradycardia Verified 08/12/20 16:33 Macrolide Antibiotics AdvReac Severe Hallucinati Verified 08/12/20 16:33 ons antibiotic Allergy Severe Airway Uncoded 08/12/20 16:33 Tightness Home Meds: Home Meds Insulin Glarg,Human.Rec.Analog [LantUS Solostar] 52 units SUBCUT 1300 01/22/15 [History] Lisinopril 40 mg PO DAILY 01/22/15 [History] Simvastatin [Zocor] 40 mg PO DAILY 01/22/15 [History] Zolpidem [Ambien] 10 mg PO BEDTIME PRN 01/22/15 [History] carvediloL [Coreg] 25 mg PO BID 01/22/15 [History] glipiZIDE [Glipizide ER] 10 mg PO BID 01/22/15 [History] metFORMIN [Glucophage] 1,000 mg PO BID 01/22/15 [History] traZODone 50 mg PO BEDTIME PRN 01/22/15 [History] All Natural Vitamin Pack 1 tab PO DAILY 01/13/16 [History] Dulaglutide [Trulicity] 0.75 mg SUBCUT WEEKLY 04/03/19 [History] Escitalopram [Lexapro] 20 mg PO DAILY 04/04/19 [History] Acetaminophen [Tylenol] 650 mg PO Q4H PRN tablet 04/06/19 [Rx] Furosemide [Lasix] 20 mg PO DAILY #30 tablet 04/06/19 [Rx] Nicotine [Habitrol] 14 mg TRDERM DAILY #30 patch 04/06/19 [Rx] Pantoprazole [ProTONIX] 40 mg PO DAILY #30 tab.cr 04/06/19 [Rx] predniSONE [Prednisone] 40 mg PO DAILY #10 tablet 05/16/19 [Rx] Past Medical History Other HEENT History: wears upper dentures, glasses Cardiovascular History: Reports: Heart Failure, High Cholesterol, Hypertension, SOB on Exertion Respiratory History: Reports: COPD, Sleep Apnea, SOB Other Respiratory History: chronic cough Gastrointestinal History: Reports: Diverticulosis, Other (See Below) Other Gastrointestinal History: melanosis coli Genitourinary History: Reports: Renal Calculus 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 MANAGER History: bilateral partial oophorectomy (has 03/10 of 1 ovary) Musculoskeletal History: Reports: Arthritis, Other (See Below) Other Musculoskeletal History: joint pain Neurological History: Reports: Headaches, Chronic Other Neuro History: fatigue Psychiatric History: Reports: Anxiety, Depression Endocrine/Metabolic History: Reports: Diabetes, Type II - Infectious Disease History Infectious Disease History: Reports: C-Difficile, Chicken Pox - Past Surgical History HEENT Surgical History: Reports: Tonsillectomy Cardiovascular Surgical History: Reports: None Respiratory Surgical History: Reports: None GI Surgical History: Reports: Appendectomy, Cholecystectomy, Colonoscopy, Hernia Repair/Other Female Surgical History: Reports: Section, Oophorectomy Other Female Surgeries/Procedures: oophorectomy, multiple surgeries on ovaries including exploratory laporotmy Neurological Surgical History: Reports: None Musculoskeletal Surgical History: Reports: None Social & Family History - Family History Family Medical History: No Pertinent Family History HEENT: Reports: None Cardiac: Reports: [place] Respiratory: Reports: None GI: Reports: None : Reports: None Psychiatric: Reports: None Endocrine/Metabolic: Reports: IDDM Other Endocrine/Metabolic Family History: Alpha1 antitripsin deficiency - Tobacco Use Tobacco Use Status *Q: Never Tobacco User - Caffeine Use Caffeine Use: Reports: Coffee, Soda - Recreational Drug Use Recreational Drug Use: No - Living Situation & Occupation Living situation: Reports: with Spouse Occupation: Employed ED ROS GENERAL - Review of Systems Review Of Systems: See Below Constitutional: Reports: No Symptoms HEENT: Reports: No Symptoms Respiratory: Reports: No Symptoms Cardiovascular: Reports: No Symptoms GI/Abdominal: Reports: No Symptoms : Reports: No Symptoms Musculoskeletal: Reports: No Symptoms Skin: Reports: No Symptoms Neurological: Reports: Other (See HPI) Psychiatric: Reports: No Symptoms Hematologic/Lymphatic: Reports: No Symptoms ED EXAM, GENERAL - Physical Exam Exam: See Below Exam Limited By: No Limitations General Appearance: Alert, No Apparent Distress Eye Exam: Bilateral Eye: EOMI, Normal Inspection, PERRL Ears: Normal External Exam, Normal Canal, Hearing Grossly Normal, Normal TMs Nose: Normal Inspection, Normal Mucosa, No Blood Throat/Mouth: Normal Inspection, Normal Lips, Normal Teeth, Normal Gums, Normal Oropharynx, Normal Voice, No Airway Compromise, Other (The patient can feel touch on both sides of the tongue however she describes that as it feels like it fell asleep) Head: Atraumatic, Normocephalic Neck: Normal Inspection, Supple, Non-Tender, Full Range of Motion Respiratory/Chest: No Respiratory Distress, Lungs Clear, Normal Breath Sounds Cardiovascular: Regular Rate, Rhythm, No Murmur, Other (Trace edema both lower extremities). No: No Edema GI/Abdominal: Normal Bowel Sounds, Soft, Non-Tender, Other (Obese) Back Exam: Normal Inspection. No: CVA Tenderness (L), CVA Tenderness (R) Extremities: Pedal Edema (Trace bilaterally) Neurological: Alert, Oriented, CN II-XII Intact, Other (No identifiable extremity weakness at this time) Psychiatric: Normal Affect, Normal Mood Skin Exam: Warm, Dry, Intact #1 Interpretation EKG Date: 08/12/20 Rhythm: NSR [place]: Normal P-Wave: Present QRS: Normal ST-T: Other (None diagnostic minimal depression lateral leads) QT: Normal Comparison: No Change (No significant change from 05/16/2019) EKG Interpretation Comments: Abnormal EKG Course - Vital Signs Last Recorded V/S: Last Vital Signs Temp 36.9 C 08/12/20 16:29 Pulse Resp 30 H 08/12/20 16:29 BP Pulse Ox 94 L 08/12/20 16:29 - Orders/Labs/Meds Orders: Active Orders 24 hr Category Date Time Status EKG Documentation Completion [RC] ASDIRECTED Care 08/12/20 16:40 Active Ang Head [CT] Stat Exams 08/12/20 17:59 Ordered Ang Neck [CT] Stat Exams 08/12/20 17:59 Ordered GLUCOSE,POC [POC] Stat Lab 08/12/20 16:25 Ordered TROPONIN I [CHEM] Stat Lab 08/12/20 16:32 Received EKG 12 Lead [EK] Stat Ther 08/12/20 16:40 Ordered Labs: Laboratory Tests 08/12/20 08/12/20 08/12/20 Range/Units 16:32 16:32 16:33 WBC 9.24 (3.98-10.04) K/mm3 RBC 4.37 (3.98-5.22) M/mm3 Hgb 14.3 D (11.2-15.7) gm/dl Hct 42.1 (34.1-44.9) % MCV 96.3 H D (79.4-94.8) fl MCH 32.7 H (25.6-32.2) pg MCHC 34.0 (32.2-35.5) g/dl RDW Std Deviation 40.8 (36.4-46.3) fL Plt Count 279 D (182-369) K/mm3 MPV 11.0 (9.4-12.3) fl Neut % (Auto) 48.5 (34.0-71.1) % Lymph % (Auto) 45.0 (19.3-51.7) % [place] % (Auto) 5.1 (4.7-12.5) % Eos % (Auto) 1.0 (0.7-5.8) Baso % (Auto) 0.3 (0.1-1.2) % Neut # (Auto) 4.48 (1.56-6.13) K/mm3 Lymph # (Auto) 4.16 H (1.18-3.74) K/mm3 [place] # (Auto) 0.47 H (0.24-0.36) K/mm3 Eos # (Auto) 0.09 (0.04-0.36) K/mm3 Baso # (Auto) 0.03 (0.01-0.08) K/mm3 Sodium 141 (136-145) mEq/L Potassium 4.5 (3.5-5.1) mEq/L Chloride 107 (98-107) mEq/L Carbon Dioxide 24 (21-32) mEq/L Anion Gap 14.5 (5-15) BUN 14 (7-18) mg/dL Creatinine 0.9 (0.55-1.02) mg/dL Est Cr Clr Drug Dosing TNP Estimated GFR (MDRD) > 60 (>60) mL/min BUN/Creatinine Ratio 15.6 (14-18) Glucose 215 H (70-99) mg/dL POC Glucose 197 H (70-99) mg/dL Calcium 8.9 (8.5-10.1) mg/dL Total Bilirubin 0.3 (0.2-1.0) mg/dL AST 48 H (15-37) U/L ALT 62 H (14-59) U/L Alkaline Phosphatase 95 (46-116) U/L C-Reactive Protein <0.2 (<1.0) mg/dL Total Protein 7.5 (6.4-8.2) g/dl Albumin 3.4 (3.4-5.0) g/dl Globulin 4.1 gm/dL Albumin/Globulin Ratio 0.8 L (1-2) SARS-CoV-2 RNA (JAYCE) (NEGATIVE) 08/12/20 Range/Units 16:50 WBC (3.98-10.04) K/mm3 RBC (3.98-5.22) M/mm3 Hgb (11.2-15.7) gm/dl Hct (34.1-44.9) % MCV (79.4-94.8) fl MCH (25.6-32.2) pg MCHC (32.2-35.5) g/dl RDW Std Deviation (36.4-46.3) fL Plt Count (182-369) K/mm3 MPV (9.4-12.3) fl Neut % (Auto) (34.0-71.1) % Lymph % (Auto) (19.3-51.7) % [place] % (Auto) (4.7-12.5) % Eos % (Auto) (0.7-5.8) Baso % (Auto) (0.1-1.2) % Neut # (Auto) (1.56-6.13) K/mm3 Lymph # (Auto) (1.18-3.74) K/mm3 [place] # (Auto) (0.24-0.36) K/mm3 Eos # (Auto) (0.04-0.36) K/mm3 Baso # (Auto) (0.01-0.08) K/mm3 Sodium (136-145) mEq/L Potassium (3.5-5.1) mEq/L Chloride (98-107) mEq/L Carbon Dioxide (21-32) mEq/L Anion Gap (5-15) BUN (7-18) mg/dL Creatinine (0.55-1.02) mg/dL Est Cr Clr Drug Dosing Estimated GFR (MDRD) (>60) mL/min BUN/Creatinine Ratio (14-18) Glucose (70-99) mg/dL POC Glucose (70-99) mg/dL Calcium (8.5-10.1) mg/dL Total Bilirubin (0.2-1.0) mg/dL AST (15-37) U/L ALT (14-59) U/L Alkaline Phosphatase (46-116) U/L C-Reactive Protein (<1.0) mg/dL Total Protein (6.4-8.2) g/dl Albumin (3.4-5.0) g/dl Globulin gm/dL Albumin/Globulin Ratio (1-2) SARS-CoV-2 RNA (JAYCE) Negative (NEGATIVE) Meds: Medications Discontinued Medications Generic Name Dose Route Start Last Admin Trade Name Brianna PRN Reason Stop Dose Admin Aspirin 81 mg 08/12/20 18:00 Aspirin 81 Mg Tab.Chew PO 08/12/20 18:01 ONETIME ONE - Re-Assessments/Exams Free Text/Narrative Re-Assessment/Exam: 08/12/20 18:06 Patient's case was discussed with Dr. Mcekon, on-call neurologist at . The patient symptoms have resolved now. He is thinking a small TIA is possible recommends MRI in the morning CTA of the head and neck he can get this done tonight starting Plavix and aspirin overnight telemetry. Case discussed with Dr. Ryan who kindly accepts the patient IV and get a check a CTA here in the emergency department. Prior to going on the floor. Departure - Departure Time of Disposition: 18:08 Disposition: Refer to Observation Clinical Impression: TIA (transient ischemic attack) - Discharge Information Referrals: Jacob Bond MD [Primary Care Provider] - Forms: ED Department Discharge Sepsis Event Note (ED) - Evaluation Sepsis Screening Result: No Definite Risk - Focused Exam Vital Signs: Vital Signs Temp Resp Pulse Ox 08/12/20 16:29 36.9 C 30 H 94 L - My Orders Last 24 Hours: My Active Orders 08/12/20 16:25 GLUCOSE,POC [POC] Stat 08/12/20 16:32 TROPONIN I [CHEM] Stat 08/12/20 16:40 EKG Documentation Completion [RC] ASDIRECTED EKG 12 Lead [EK] Stat 08/12/20 17:59 Ang Head [CT] Stat Ang Neck [CT] Stat - Assessment/Plan Last 24 Hours: My Active Orders 08/12/20 16:25 GLUCOSE,POC [POC] Stat 08/12/20 16:32 TROPONIN I [CHEM] Stat 08/12/20 16:40 EKG Documentation Completion [RC] ASDIRECTED EKG 12 Lead [EK] Stat 08/12/20 17:59 Ang Head [CT] Stat Ang Neck [CT] Stat
--- NOTE | 2020-08-12 16:59 | CT ---
Head CT Technique: Multiple axial sections through the brain were obtained. Intravenous contrast was not utilized. Reconstructed coronal and sagittal images were obtained. Findings: Mild atrophy is noted. No abnormal parenchymal densities are seen. No evidence of intracranial hemorrhage. No midline shift or mass-effect is seen. Bone window settings were reviewed. No acute calvarial abnormality is appreciated. Atherosclerotic calcification is noted within the carotid siphon. Visualized paranasal sinuses and mastoid sinuses are clear. Impression: 1. Mild generalized atrophy. 2. Atherosclerotic calcification within the carotid siphon. 3. Nothing acute is appreciated on noncontrast CT study of the brain. Note: If patient has strong symptoms for stroke, brain MRI is then recommended. Diagnostic code #2
[2020-08-12] MEDS ORDERED: Aspirin 81 MG Tab.Chew PO ONE (18:00)
[2020-08-12] MEDS ORDERED: Sodium Chloride 0.9% 10 ML Syringe FLUSH SCH (18:15)
[2020-08-12] MEDS ORDERED: Iopamidol 755 Mg/ML 100 ML Bottle IVPUSH ONE (18:15)
[2020-08-12] MEDS ORDERED: Sodium Chloride 0.9% 100 ML IV SCH (18:15)
[2020-08-12] MEDS ORDERED: Ondansetron 4 MG Tab.DIS PO PRN (19:11)
[2020-08-12] MEDS ORDERED: Docusate Sodium 100 MG Cap PO PRN (19:11)
[2020-08-12] MEDS ORDERED: Ondansetron 4 MG/2 ML SDV IV PRN (19:11)
[2020-08-12] MEDS ORDERED: Sodium Chloride 0.9% 10 ML Syringe FLUSH PRN (19:11)
[2020-08-12] MEDS ORDERED: Acetaminophen 325 MG Tab PO PRN (19:11)
[2020-08-12] MEDS ORDERED: traZODone 50 MG Tab PO PRN (19:13)
[2020-08-12] MEDS ORDERED: Zolpidem 10 MG Tab PO PRN (19:13)
--- NOTE | 2020-08-12 19:23 | PCM.HP.2 ---
H&P History of Present Illness - General Date of Service: 08/12/20 Admit Problem/Dx: Admission Diagnosis/Problem Admission Diagnosis/Problem TIA, Transient ischemic attack Source of Information: Patient History Limitations: Reports: No Limitations - History of Present Illness Initial Comments - Free Text/Narative: Patient is a 60-year-old female with a past medical history as listed below who presents to the [facility] emergency department due to a chief complaint of s peech disturbance. 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 She was working and conversing with people when she started to notice that she was having trouble comprehending as well as getting the correct words out of her mouth. She felt as if her tongue was numb with a pins and needle sensation. She was experiencing expressive aphasia for approximately 45 minutes. She called for management to come evaluate her as she knew something was wrong. Family member was called and she left the liquor store to go hot die picker her son before coming to the hospital. Patient has denied any other motor or sensory deficits. Denies any headache or visual deficit. She states that the symptoms have never been present before. Upon evaluation emergency department her speech pattern had returned to normal. She was not experiencing any abnormal sensations in her tongue. The patient states that she not take any potential mind altering medications or drugs before today's events occurred. Patient was brought in under stroke protocol. Initial CT of the head was negative. A call was placed to the on-call neurologist in [place] who recommended observation overnight. Continue with aspirin and statin. And to continue conventional stroke work-up. Patient was therefore referred to the internal medicine service for further work-up and management. Of note, the patient does not express any prior history of arrhythmia. CODE STATUS: Full code. 14 point review of systems was reviewed with the patient entirely and only pertinent for the above information. - Related Data Allergies/Adverse Reactions: Allergies Allergy/AdvReac Type Severity Reaction Status Date / Time amoxicillin [From Augmentin] Allergy Severe Airway Verified 08/12/20 16:33 Tightness cephalexin Allergy Severe Airway Verified 08/12/20 16:33 Tightness clavulanic acid Allergy Severe Airway Verified 08/12/20 16:33 [From Augmentin] Tightness enoxaparin [From Lovenox] AdvReac Severe Bradycardia Verified 08/12/20 16:33 Macrolide Antibiotics AdvReac Severe Hallucinati Verified 08/12/20 16:33 ons antibiotic Allergy Severe Airway Uncoded 08/12/20 16:33 Tightness Home Medications: Home Meds Insulin Glarg,Human.Rec.Analog [LantUS Solostar] 52 units SUBCUT 1300 01/22/15 [History] Lisinopril 40 mg PO DAILY 01/22/15 [History] Simvastatin [Zocor] 40 mg PO DAILY 01/22/15 [History] Zolpidem [Ambien] 10 mg PO BEDTIME PRN 01/22/15 [History] carvediloL [Coreg] 25 mg PO BID 01/22/15 [History] glipiZIDE [Glipizide ER] 10 mg PO BID 01/22/15 [History] metFORMIN [Glucophage] 1,000 mg PO BID 01/22/15 [History] traZODone 50 mg PO BEDTIME PRN 01/22/15 [History] All Natural Vitamin Pack 1 tab PO DAILY 01/13/16 [History] Dulaglutide [Trulicity] 0.75 mg SUBCUT WEEKLY 04/03/19 [History] Escitalopram [Lexapro] 20 mg PO DAILY 04/04/19 [History] Acetaminophen [Tylenol] 650 mg PO Q4H PRN tablet 04/06/19 [Rx] Furosemide [Lasix] 20 mg PO DAILY #30 tablet 04/06/19 [Rx] Nicotine [Habitrol] 14 mg TRDERM DAILY #30 patch 04/06/19 [Rx] Pantoprazole [ProTONIX] 40 mg PO DAILY #30 tab.cr 04/06/19 [Rx] predniSONE [Prednisone] 40 mg PO DAILY #10 tablet 05/16/19 [Rx] Past Medical History Other HEENT History: wears upper dentures, glasses Cardiovascular History: Reports: Heart Failure, High Cholesterol, Hypertension, SOB on Exertion Respiratory History: Reports: COPD, Sleep Apnea, SOB Other Respiratory History: chronic cough Gastrointestinal History: Reports: Diverticulosis, Other (See Below) Other Gastrointestinal History: melanosis coli Genitourinary History: Reports: Renal Calculus 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 DEVELOPMENT History: Reports: Other OB/BYN History: bilateral partial oophorectomy (has / of 1 ovary) Musculoskeletal History: Reports: Arthritis, Other (See Below) Other Musculoskeletal History: joint pain Neurological History: Reports: Headaches, Chronic Other Neuro History: fatigue Psychiatric History: Reports: Anxiety, Depression Endocrine/Metabolic History: Reports: Diabetes, Type II - Infectious Disease History Infectious Disease History: Reports: C-Difficile, Chicken Pox - Past Surgical History HEENT Surgical History: Reports: Tonsillectomy Cardiovascular Surgical History: Reports: None Respiratory Surgical History: Reports: None GI Surgical History: Reports: Appendectomy, Cholecystectomy, Colonoscopy, Hernia Repair/Other Female Surgical History: Reports: Section, Oophorectomy Other Female Surgeries/Procedures: oophorectomy, multiple surgeries on ovaries including exploratory laporotmy Neurological Surgical History: Reports: None Musculoskeletal Surgical History: Reports: None Social & Family History - Family History Family Medical History: No Pertinent Family History HEENT: Reports: None Cardiac: Reports: [place] Respiratory: Reports: None GI: Reports: None : Reports: None Psychiatric: Reports: None Endocrine/Metabolic: Reports: IDDM Other Endocrine/Metabolic Family History: Alpha1 antitripsin deficiency - Tobacco Use Tobacco Use Status *Q: Never Tobacco User - Caffeine Use Caffeine Use: Reports: Coffee, Soda - Recreational Drug Use Recreational Drug Use: No - Living Situation & Occupation Living situation: Reports: with Spouse Occupation: Employed H&P Review of Systems - Review of Systems: Review Of Systems: Comprehensive ROS is negative, except as noted in HPI. Exam - Exam Exam: See Below - Vital Signs Vital Signs: Last Vital Signs Temp 98.5 F 08/12/20 16:29 Pulse Resp 30 H 08/12/20 16:29 BP Pulse Ox 94 L 08/12/20 16:29 - Exam Quality Assessment: DVT Prophylaxis General: Alert, Oriented, Cooperative HEENT: Conjunctiva Clear, EOMI, Mucosa Moist & [place], Pupils Equal, Pupils Reactive Neck: Supple, Trachea Midline. No: Carotid Bruit Lungs: Clear to Auscultation, Normal Respiratory Effort Cardiovascular: Regular Rate, Regular Rhythm, Normal S1, Normal S2 GI/Abdominal Exam: Normal Bowel Sounds, Soft, Non-Tender Extremities: Normal Inspection, No Pedal Edema Skin: Warm, Dry, Intact Neurological: Cranial Nerves Intact, Reflexes Equal Bilateral Neuro Extensive - Mental Status: Normal Mood/Affect Neuro Extensive - Motor, Sensory, Reflexes: No: Motor/Sensory Deficits - Patient Data Lab Results Last 24 hrs: Laboratory Results - last 24 hr 08/12/20 08/12/20 08/12/20 Range/Units 16:32 16:32 16:32 WBC 9.24 (3.98-10.04) K/mm3 RBC 4.37 (3.98-5.22) M/mm3 Hgb 14.3 D (11.2-15.7) gm/dl Hct 42.1 (34.1-44.9) % MCV 96.3 H D (79.4-94.8) fl MCH 32.7 H (25.6-32.2) pg MCHC 34.0 (32.2-35.5) g/dl RDW Std Deviation 40.8 (36.4-46.3) fL Plt Count 279 D (182-369) K/mm3 MPV 11.0 (9.4-12.3) fl Neut % (Auto) 48.5 (34.0-71.1) % Lymph % (Auto) 45.0 (19.3-51.7) % [place] % (Auto) 5.1 (4.7-12.5) % Eos % (Auto) 1.0 (0.7-5.8) Baso % (Auto) 0.3 (0.1-1.2) % Neut # (Auto) 4.48 (1.56-6.13) K/mm3 Lymph # (Auto) 4.16 H (1.18-3.74) K/mm3 [place] # (Auto) 0.47 H (0.24-0.36) K/mm3 Eos # (Auto) 0.09 (0.04-0.36) K/mm3 Baso # (Auto) 0.03 (0.01-0.08) K/mm3 Sodium 141 (136-145) mEq/L Potassium 4.5 (3.5-5.1) mEq/L Chloride 107 (98-107) mEq/L Carbon Dioxide 24 (21-32) mEq/L Anion Gap 14.5 (5-15) BUN 14 (7-18) mg/dL Creatinine 0.9 (0.55-1.02) mg/dL Est Cr Clr Drug Dosing TNP Estimated GFR (MDRD) > 60 (>60) mL/min BUN/Creatinine Ratio 15.6 (14-18) Glucose 215 H (70-99) mg/dL POC Glucose (70-99) mg/dL Calcium 8.9 (8.5-10.1) mg/dL Total Bilirubin 0.3 (0.2-1.0) mg/dL AST 48 H (15-37) U/L ALT 62 H (14-59) U/L Alkaline Phosphatase 95 (46-116) U/L Troponin I < 0.017 (0.00-0.056) ng/mL C-Reactive Protein <0.2 (<1.0) mg/dL Total Protein 7.5 (6.4-8.2) g/dl Albumin 3.4 (3.4-5.0) g/dl Globulin 4.1 gm/dL Albumin/Globulin Ratio 0.8 L (1-2) SARS-CoV-2 RNA (JAYCE) (NEGATIVE) 08/12/20 08/12/20 Range/Units 16:33 16:50 WBC (3.98-10.04) K/mm3 RBC (3.98-5.22) M/mm3 Hgb (11.2-15.7) gm/dl Hct (34.1-44.9) % MCV (79.4-94.8) fl MCH (25.6-32.2) pg MCHC (32.2-35.5) g/dl RDW Std Deviation (36.4-46.3) fL Plt Count (182-369) K/mm3 MPV (9.4-12.3) fl Neut % (Auto) (34.0-71.1) % Lymph % (Auto) (19.3-51.7) % [place] % (Auto) (4.7-12.5) % Eos % (Auto) (0.7-5.8) Baso % (Auto) (0.1-1.2) % Neut # (Auto) (1.56-6.13) K/mm3 Lymph # (Auto) (1.18-3.74) K/mm3 [place] # (Auto) (0.24-0.36) K/mm3 Eos # (Auto) (0.04-0.36) K/mm3 Baso # (Auto) (0.01-0.08) K/mm3 Sodium (136-145) mEq/L Potassium (3.5-5.1) mEq/L Chloride (98-107) mEq/L Carbon Dioxide (21-32) mEq/L Anion Gap (5-15) BUN (7-18) mg/dL Creatinine (0.55-1.02) mg/dL Est Cr Clr Drug Dosing Estimated GFR (MDRD) (>60) mL/min BUN/Creatinine Ratio (14-18) Glucose (70-99) mg/dL POC Glucose 197 H (70-99) mg/dL Calcium (8.5-10.1) mg/dL Total Bilirubin (0.2-1.0) mg/dL AST (15-37) U/L ALT (14-59) U/L Alkaline Phosphatase (46-116) U/L Troponin I (0.00-0.056) ng/mL C-Reactive Protein (<1.0) mg/dL Total Protein (6.4-8.2) g/dl Albumin (3.4-5.0) g/dl Globulin gm/dL Albumin/Globulin Ratio (1-2) SARS-CoV-2 RNA (JAYCE) Negative (NEGATIVE) Result Diagrams: 08/12/20 16:32 08/12/20 16:32 Imaging Impressions Last 24 hrs: CT of the head without contrast personally reviewed. Also reviewed formal reading. Agree with no acute pathology. Sepsis Event Note - Evaluation Sepsis Screening Result: No Definite Risk - Focused Exam Vital Signs: Vital Signs Temp Resp Pulse Ox 08/12/20 16:29 98.5 F 30 H 94 L Problem List Initiated/Reviewed/Updated: Yes Orders Last 24hrs: Active Orders 24 hr Category Date Time Status Patient Status [ADT] Routine ADT 08/12/20 18:43 Active Blood Glucose Check, Bedside [RC] WITHMEALSANDBED Care 08/12/20 19:15 Ordered EKG Documentation Completion [RC] ASDIRECTED Care 08/12/20 16:40 Active Oxygen Therapy [RC] PRN Care 08/12/20 18:43 Active Up With Assistance [RC] ASDIRECTED Care 08/12/20 19:11 Ordered VTE/DVT Education [RC] PER UNIT ROUTINE Care 08/12/20 18:43 Active Vital Signs [RC] Q4H Care 08/12/20 18:43 Active OT Evaluation and Treatment [CONS] Routine Cons 08/12/20 19:11 Ordered PT Evaluation and Treatment [CONS] Routine Cons 08/12/20 19:11 Ordered Consistent Carbohydrate Diet [DIET] Diet 08/12/20 Breakfast Ordered Ang Head [CT] Stat Exams 08/12/20 17:59 Ordered Ang Neck [CT] Stat Exams 08/12/20 17:59 Ordered Brain wo Cont [MR] Routine Exams 08/13/20 09:00 Ordered Carotid Comp [US] Routine Exams 08/13/20 08:00 Ordered GLUCOSE,POC [POC] Stat Lab 08/12/20 16:25 Ordered Acetaminophen [TylenoL] Med 08/12/20 19:11 Ordered 650 mg PO Q4H PRN Aspirin Med 08/13/20 09:00 Ordered 81 mg PO DAILY Docusate Sodium [Colace] Med 08/12/20 19:11 Ordered 100 mg PO BID PRN Escitalopram Med 08/13/20 09:00 Ordered 20 mg PO DAILY Furosemide [Lasix] Med 08/13/20 09:00 Ordered 20 mg PO DAILY Heparin Sodium Med 08/12/20 19:15 Ordered 5,000 units SUBCUT Q8H Insulin Lispro [HumaLOG] Med 08/12/20 22:00 Ordered See Protocol SUBCUT QIDACANDBED Lisinopril [Lisinopril] Med 08/13/20 09:00 Ordered 40 mg PO DAILY Nicotine [Habitrol] Med 08/13/20 09:00 Ordered 14 mg TRDERM DAILY Ondansetron [Zofran ODT] Med 08/12/20 19:11 Ordered 4 mg PO Q4H PRN Ondansetron [Zofran] Med 08/12/20 19:11 Ordered 4 mg IV Q4H PRN Pantoprazole [ProTONIX] Med 08/13/20 09:00 Ordered 40 mg PO DAILY Sodium Chloride 0.9% [Normal Saline] 100 ml Med 08/12/20 18:15 Active IV ASDIRECTED Sodium Chloride 0.9% [Saline Flush] Med 08/12/20 19:11 Ordered 10 ml FLUSH ASDIRECTED PRN Zolpidem [Ambien] Med 08/12/20 19:13 Ordered 10 mg PO BEDTIME PRN atorvaSTATin [Lipitor] Med 08/12/20 21:00 Ordered 80 mg PO BEDTIME carvediloL [Coreg] Med 08/12/20 21:00 Ordered 25 mg PO BID predniSONE Med 08/13/20 09:00 Ordered 40 mg PO DAILY traZODone Med 08/12/20 19:13 Ordered 50 mg PO BEDTIME PRN Saline Lock Insert [OM.PC] Routine Oth 08/12/20 19:11 Ordered Resuscitation Status Routine Resus Stat 08/12/20 18:43 Ordered EKG 12 Lead [EK] Stat Ther 08/12/20 16:40 Ordered Medication Orders Acetaminophen (Acetaminophen 325 Mg Tab) 650 mg PO Q4H PRN PRN Reason: Pain (Mild 1-3)/fever Aspirin (Aspirin 81 Mg Tab.Chew) 81 mg PO DAILY [facility] Atorvastatin Calcium (Atorvastatin 40 Mg Tab) 80 mg PO BEDTIME ELY Carvedilol (Carvedilol 12.5 Mg Tab) 25 mg PO BID [facility] Docusate Sodium (Docusate Sodium 100 Mg Cap) 100 mg PO BID PRN PRN Reason: Constipation Furosemide (Furosemide 20 Mg Tab) 20 mg PO DAILY [facility] Heparin Sodium (Porcine) (Heparin Sodium 5,000 Units/Ml Vial) 5,000 units SUBCUT Q8H [facility] Sodium Chloride (Normal Saline) 100 mls @ 60 mls/hr IV ASDIRECTED [facility] Insulin Human Lispro (Insulin Lispro 100 Unit/Ml 10 Ml Vial) 0 unit SUBCUT QIDACANDBED [facility]; Protocol Nicotine (Nicotine 14 Mg/24 Hr Patch) 14 mg TRDERM DAILY [facility] Non-Formulary Medication (Escitalopram) 20 mg PO DAILY [facility] Non-Formulary Medication (Lisinopril [Lisinopril]) 40 mg PO DAILY [facility] Non-Formulary Medication (Trazodone) 50 mg PO BEDTIME PRN PRN Reason: Insomnia Ondansetron HCl (Ondansetron 4 Mg Tab.Dis) 4 mg PO Q4H PRN PRN Reason: nausea, able to take PO Ondansetron HCl (Ondansetron 4 Mg/2 Ml Sdv) 4 mg IV Q4H PRN PRN Reason: Nausea/Vomiting Pantoprazole Sodium (Pantoprazole 40 Mg Tab.Cr) 40 mg PO DAILY [facility] Prednisone (Prednisone 20 Mg Tab) 40 mg PO DAILY [facility] Sodium Chloride (Sodium Chloride 0.9% 10 Ml Syringe) 10 ml FLUSH ASDIRECTED PRN PRN Reason: Keep Vein Open Zolpidem Tartrate (Zolpidem 10 Mg Tab) 10 mg PO BEDTIME PRN PRN Reason: Insomnia Assessment/Plan Comment:: 60-year-old female with a past medical history as mentioned above who presents to the [facility] emergency department with expressive aphasia and sensory deficit of the tongue; now resolved. 1. Possible transient ischemic attack. Admit to the hospitalist service under observation. Continue stroke protocol. MRI without contrast per stroke protocol pending in the morning. Proceed with carotid artery ultrasound bilaterally. Initiate aspirin 81 mg daily. Will change her statin to high-dose Lipitor 80 mg nightly. Check lipid panel. Optimize glycemic control. PT and OT evaluation. Patient was seen walking the halls in the emergency department without aids to the bathroom. Monitored on telemetry. Echocardiogram with bubble study. 2. Insulin-dependent diabetes mellitus. Initiate hospital hyperglycemia protocol. Hold home oral regimen. Check hemoglobin A1c. 3. History of unspecified CHF. Continue home diuretic regimen. 4. Hypertension. Continue Coreg. All other medical comorbidities are stable and nonactive conditions, will continue home medications at regular dose. CODE STATUS: Full code. DVT prophylaxis with heparin subcu. - Mortality Measure Prognosis:: Good
[2020-08-12] MEDS ORDERED: Carvedilol 12.5 MG Tab PO SCH (21:00)
[2020-08-12] MEDS ORDERED: atorvaSTATin 40 MG Tab PO SCH (21:00)
[2020-08-12] MEDS: Heparin Sodium 5,000 Units/ML Vial SUBCUT ONE ×2 (23:26→23:32)
[2020-08-12] MEDS: Insulin Lispro 100 UNIT/ML 10 ML Vial SUBCUT SCH (23:30)
[2020-08-12] MEDS: Carvedilol 12.5 MG Tab PO SCH (23:35)
[2020-08-12] MEDS: Heparin Sodium 5,000 Units/ML Vial SUBCUT SCH (23:36)
[2020-08-13] MEDS: Heparin Sodium 5,000 Units/ML Vial SUBCUT SCH (05:45)
[2020-08-13] MEDS ORDERED: Pantoprazole 40 MG Tab.CR PO SCH (06:00)
[2020-08-13] MEDS ORDERED: Heparin Sodium 5,000 Units/ML Vial SUBCUT SCH (07:30)
[2020-08-13] MEDS: Carvedilol 12.5 MG Tab PO SCH (08:43)
[2020-08-13] MEDS: Insulin Lispro 100 UNIT/ML 10 ML Vial SUBCUT SCH ×2 (08:52→12:58)
[2020-08-13] MEDS ORDERED: CHANTIX 1 MG PO SCH (09:00)
[2020-08-13] MEDS ORDERED: predniSONE 20 MG Tab PO SCH (09:00)
[2020-08-13] MEDS ORDERED: Citalopram 20 MG Tab PO SCH (09:00)
[2020-08-13] MEDS ORDERED: Furosemide 20 MG Tab PO SCH (09:00)
[2020-08-13] MEDS ORDERED: Lisinopril 20 MG Tab PO SCH (09:00)
[2020-08-13] MEDS ORDERED: Nicotine 14 MG/24 Hr Patch TRDERM SCH (09:00)
[2020-08-13] MEDS ORDERED: Aspirin 81 MG Tab.Chew PO SCH (09:00)
--- NOTE | 2020-08-13 09:14 | MR ---
MRI brain Technique: T1 sagittal; T2, T2 FLAIR, T1 and diffusion axial; T1 and T2 gradient echo coronal images were also obtained through the brain. Comparison: Prior head CT study of 08/12/20. Findings: Ventricles along the basal cisterns and sulci over convexities are mildly prominent. No abnormal signal is seen within the brain parenchyma. No midline shift or mass-effect is seen. Normal signal void is noted within the major cerebral arteries within the skull base. No acute diffusion abnormalities are seen. No abnormal signal is seen on the gradient echo sequence. Visualized mastoid sinuses and paranasal sinuses shows nothing acute. Impression: 1. Mild generalized atrophy similar to prior head CT exam. 2. Nothing acute is appreciated on noncontrast MRI study of the brain. Diagnostic code #2
--- NOTE | 2020-08-13 12:44 | PCM.DCSUM1 ---
Discharge Summary - Hospital Course Free Text/Narrative:: 60-year-old female with a past medical history as mentioned above who presented to the [facility] emergency department with expressive aphasia and sensory deficit of the tongue; now resolved. 1. Possible transient ischemic attack. Admitted to the hospitalist service under observation. Continued stroke protocol. MRI without contrast negative for acute pathology as was initial head CT in the emergency department. Carotid artery ultrasound bilaterally indicated velocity measurements within both internal carotid arteries corresponding to stenosis in the 1 to 49% range. Moderate amount of plaque noted within both carotid bulbs with extension into the right internal carotid artery. Initiated aspirin 81 mg daily. Changed her statin to high-dose Lipitor 80 mg nightly. Lipid panel only notable for high triglycerides. Optimize glycemic control. PT and OT evaluation without concern. Patient was seen walking the halls in the emergency department without aids to the bathroom prior to admission. Monitored on telemetry. No objective evidence to suggest arrhythmia. Echocardiogram with bubble study negative for shunt. 2. Insulin-dependent diabetes mellitus. Initiated hospital hyperglycemia protocol. Held home oral regimen while in the hospital. Hemoglobin A1c checked however results still pending at time of discharge; this will need to be followed up by her PCP. 3. History of unspecified CHF. Continued home diuretic regimen. 4. Hypertension. Continue Coreg. All other medical comorbidities were stable and nonactive conditions, continued home medications at regular dose. CODE STATUS: Full code. DVT prophylaxis with heparin subcu. HPI Initial Comments: Patient is a 60-year-old female with a past medical history as listed below who presents to the [facility] emergency department due to a chief complaint of speech disturbance. 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 She was working and conversing with people when she started to notice that she was having trouble comprehending as well as getting the correct words out of her mouth. She felt as if her tongue was numb with a pins and needle sensation. She was experiencing expressive aphasia for approximately 45 minutes. She called for management to come evaluate her as she knew something was wrong. Family member was called and she left the liquor store to go seed cone picker her son before coming to the hospital. Patient has denied any other motor or sensory deficits. Denies any headache or visual deficit. She states that the symptoms have never been present before. Upon evaluation emergency department her speech pattern had returned to normal. She was not experiencing any abnormal sensations in her tongue. The patient states that she not take any potential mind altering medications or drugs before today's events occurred. Patient was brought in under stroke protocol. Initial CT of the head was negative. A call was placed to the on-call neurologist in [place] who recommended observation overnight. Continue with aspirin and statin. And to continue conventional stroke work-up. Patient was therefore referred to the internal medicine service for further work-up and management. Of note, the patient does not express any prior history of arrhythmia. CODE STATUS: Full code. 14 point review of systems was reviewed with the patient entirely and only pertinent for the above information. - Related Data Allergies/Adverse Reactions: Allergies Allergy/AdvReac Type Severity Reaction Status Date / Time amoxicillin [From Augmentin] Allergy Severe Airway Verified 08/12/20 16:33 Tightness cephalexin Allergy Severe Airway Verified 08/12/20 16:33 Tightness clavulanic acid Allergy Severe Airway Verified 08/12/20 16:33 [From Augmentin] Tightness enoxaparin [From Lovenox] AdvReac Severe Bradycardia Verified 08/12/20 16:33 Macrolide Antibiotics AdvReac Severe Hallucinati Verified 08/12/20 16:33 ons antibiotic Allergy Severe Airway Uncoded 08/12/20 16:33 Tightness Home Medications: Home Meds Insulin Glarg,Human.Rec.Analog [LantUS Solostar] 52 units SUBCUT 1300 01/22/15 [History] Lisinopril 40 mg PO DAILY 01/22/15 [History] Simvastatin [Zocor] 40 mg PO DAILY 01/22/15 [History] Zolpidem [Ambien] 10 mg PO BEDTIME PRN 01/22/15 [History] carvediloL [Coreg] 25 mg PO BID 01/22/15 [History] glipiZIDE [Glipizide ER] 10 mg PO BID 01/22/15 [History] metFORMIN [Glucophage] 1,000 mg PO BID 01/22/15 [History] traZODone 50 mg PO BEDTIME PRN 01/22/15 [History] All Natural Vitamin Pack 1 tab PO DAILY 01/13/16 [History] Dulaglutide [Trulicity] 0.75 mg SUBCUT WEEKLY 01/28/20 [History] Escitalopram [Lexapro] 20 mg PO DAILY 04/04/19 [History] Acetaminophen [Tylenol] 650 mg PO Q4H PRN tablet 04/06/19 [Rx] Furosemide [Lasix] 20 mg PO DAILY #30 tablet 04/06/19 [Rx] Nicotine [Habitrol] 14 mg TRDERM DAILY #30 patch 04/06/19 [Rx] Pantoprazole [ProTONIX] 40 mg PO DAILY #30 tab.cr 04/06/19 [Rx] predniSONE [Prednisone] 40 mg PO DAILY #10 tablet 05/16/19 [Rx] Past Medical History Other HEENT History: wears upper dentures, glasses Cardiovascular History: Reports: Heart Failure, High Cholesterol, Hypertension, SOB on Exertion Respiratory History: Reports: COPD, Sleep Apnea, SOB Other Respiratory History: chronic cough Gastrointestinal History: Reports: Diverticulosis, Other (See Below) Other Gastrointestinal History: melanosis coli Genitourinary History: Reports: Renal Calculus [employer]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 OB/BYN History: bilateral partial oophorectomy (has 03/10 of 1 ovary) Musculoskeletal History: Reports: Arthritis, Other (See Below) Other Musculoskeletal History: joint pain Neurological History: Reports: Headaches, Chronic Other Neuro History: fatigue Psychiatric History: Reports: Anxiety, Depression Endocrine/Metabolic History: Reports: Diabetes, Type II - Infectious Disease History Infectious Disease History: Reports: C-Difficile, Chicken Pox - Past Surgical History HEENT Surgical History: Reports: Tonsillectomy Cardiovascular Surgical History: Reports: None Respiratory Surgical History: Reports: None GI Surgical History: Reports: Appendectomy, Cholecystectomy, Colonoscopy, Hernia Repair/Other Female Surgical History: Reports: Section, Oophorectomy Other Female Surgeries/Procedures: oophorectomy, multiple surgeries on ovaries including exploratory laporotmy Neurological Surgical History: Reports: None Musculoskeletal Surgical History: Reports: None Social & Family History - Family History Family Medical History: No Pertinent Family History HEENT: Reports: None Cardiac: Reports: [place] Respiratory: Reports: None GI: Reports: None : Reports: None Psychiatric: Reports: None Endocrine/Metabolic: Reports: IDDM Other Endocrine/Metabolic Family History: Alpha1 antitripsin deficiency - Tobacco Use Tobacco Use Status *Q: Never Tobacco User - Caffeine Use Caffeine Use: Reports: Coffee, Soda - Recreational Drug Use Recreational Drug Use: No - Living Situation & Occupation Living situation: Reports: with Spouse Occupation: Employed H&P Review of Systems - Review of Systems: Review Of Systems: Comprehensive ROS is negative, except as noted in HPI. Exam - Exam Exam: See Below - Vital Signs Vital Signs: Last Vital Signs Temp 98.5 F 08/12/20 16:29 Pulse Resp 30 H 08/12/20 16:29 BP Pulse Ox 94 L 08/12/20 16:29 - Exam Quality Assessment: DVT Prophylaxis General: Alert, Oriented, Cooperative HEENT: Conjunctiva Clear, EOMI, Mucosa Moist & [place], Pupils Equal, Pupils Reactive Neck: Supple, Trachea Midline. No: Carotid Bruit Lungs: Clear to Auscultation, Normal Respiratory Effort Cardiovascular: Regular Rate, Regular Rhythm, Normal S1, Normal S2 GI/Abdominal Exam: Normal Bowel Sounds, Soft, Non-Tender Extremities: Normal Inspection, No Pedal Edema Skin: Warm, Dry, Intact Neurological: Cranial Nerves Intact, Reflexes Equal Bilateral Neuro Extensive - Mental Status: Normal Mood/Affect Neuro Extensive - Motor, Sensory, Reflexes: No: Motor/Sensory Deficits Diagnosis: Stroke: No Modified [place] Scale: No Symptoms at All Modified [place] Scale Score: 0 - Discharge Data Discharge Date: 08/13/20 Discharge Disposition: Home, Self-Care 01 Condition: Good - Referral to Home Health Primary Care Physician: Jacob Bond MD - Patient Summary/Data Consults: Consultations 08/12/20 19:11 OT Evaluation and Treatment [CONS] Routine PT Evaluation and Treatment [CONS] Routine - Patient Instructions Diet: Diabetic Diet Activity: As Tolerated Other/Special Instructions: Follow-up with PCP within 1 to 2 weeks. Continue taking medications as indicated at time of discharge which now include high-dose statin and daily aspirin. Activity and diet are as tolerated. If you experience any signs or symptoms that warranted this admission please do not hesitate to call your primary care physician or present to an urgent care/emergency department for an immediate evaluation. - Discharge Plan *PRESCRIPTION DRUG MONITORING PROGRAM REVIEWED*: Not Applicable *COPY OF PRESCRIPTION DRUG MONITORING REPORT IN PATIENT NORMA: Not Applicable Prescriptions/Med Rec: Aspirin 81 mg PO DAILY #30 tab.chew atorvaSTATin [Lipitor] 80 mg PO BEDTIME #30 tablet Home Medications: Home Meds Insulin Glarg,Human.Rec.Analog [LantUS Solostar] 30 units SUBCUT DAILY 01/22/15 [History] Simvastatin [Zocor] 40 mg PO BEDTIME 01/22/15 [History] carvediloL [Coreg] 25 mg PO BID 01/22/15 [History] Dulaglutide [Trulicity] 1.5 mg SUBCUT WEEKLY 04/03/19 [History] Escitalopram [Lexapro] 20 mg PO BEDTIME 04/04/19 [History] Acetaminophen [Tylenol] 650 mg PO Q4H PRN tablet 04/06/19 [Rx] Albuterol Sulfate [Albuterol Sulfate HFA] 2 INH Q2H PRN 08/12/20 [History] Insulin Glarg,Human.Rec.Analog [Lantus] 30 units SUBCUT BEDTIME 08/12/20 [History] Insulin Lispro-Aabc [Lyumjev Kwikpen U-100] 6 unit SQ TID 08/12/20 [History] Multivitamin 1 each PO DAILY 08/12/20 [History] Non-Formulary Medication [NF Drug] 1 inh INH BEDTIME 08/12/20 [History] Aspirin 81 mg PO DAILY #30 tab.chew 08/13/20 [Rx] Varenicline Tartrate [Chantix] 1 mg PO BID 08/13/20 [History] atorvaSTATin [Lipitor] 80 mg PO BEDTIME #30 tablet 08/13/20 [Rx] Patient Handouts: Transient Ischemic Attack, [id number], Steps to Quit Smoking Forms: ED Department Discharge Referrals: Jaymie Guo NP [Ordering Only Provider] - 08/22/20 8:00 am (this is the check in time and the appointment is for 8:15 am) Jacob Bond MD [Primary Care Provider] - (will be out of town ao you have a hospital follow up appointment with Jaymie Guo) - Discharge Summary/Plan Comment DC Time >30 min.: No - General Info Date of Service: 08/13/20 Admission Dx/Problem (Free Text: Admission Diagnosis/Problem Admission Diagnosis/Problem TIA, Transient ischemic attack Subjective Update: No acute events overnight. No specific nursing concerns. Patient does not endorse any specific complaints. - Patient Data Vitals - Most Recent: Last Vital Signs Temp 98.4 F 08/13/20 08:19 Pulse 72 08/13/20 08:43 Resp 24 H 08/13/20 08:19 BP 135/77 06/09/21 08:43 Pulse Ox 99 08/13/20 08:19 Weight - Most Recent: 278 lb I&O - Last 24 hours: Intake & Output 08/12/20 08/13/20 08/13/20 22:59 06:59 14:59 Intake Total 100 200 Output Total 400 Balance -300 200 Lab Results - Last 24 hrs: Laboratory Results - last 24 hr 08/12/20 08/12/20 08/12/20 Range/Units 16:32 16:32 16:32 WBC 9.24 (3.98-10.04) K/mm3 RBC 4.37 (3.98-5.22) M/mm3 Hgb 14.3 D (11.2-15.7) gm/dl Hct 42.1 (34.1-44.9) % MCV 96.3 H D (79.4-94.8) fl MCH 32.7 H (25.6-32.2) pg MCHC 34.0 (32.2-35.5) g/dl RDW Std Deviation 40.8 (36.4-46.3) fL Plt Count 279 D (182-369) K/mm3 MPV 11.0 (9.4-12.3) fl Neut % (Auto) 48.5 (34.0-71.1) % Lymph % (Auto) 45.0 (19.3-51.7) % [place] % (Auto) 5.1 (4.7-12.5) % Eos % (Auto) 1.0 (0.7-5.8) Baso % (Auto) 0.3 (0.1-1.2) % Neut # (Auto) 4.48 (1.56-6.13) K/mm3 Lymph # (Auto) 4.16 H (1.18-3.74) K/mm3 [place] # (Auto) 0.47 H (0.24-0.36) K/mm3 Eos # (Auto) 0.09 (0.04-0.36) K/mm3 Baso # (Auto) 0.03 (0.01-0.08) K/mm3 Sodium 141 (136-145) mEq/L Potassium 4.5 (3.5-5.1) mEq/L Chloride 107 (98-107) mEq/L Carbon Dioxide 24 (21-32) mEq/L Anion Gap 14.5 (5-15) BUN 14 (7-18) mg/dL Creatinine 0.9 (0.55-1.02) mg/dL Est Cr Clr Drug Dosing TNP Estimated GFR (MDRD) > 60 (>60) mL/min BUN/Creatinine Ratio 15.6 (14-18) Glucose 215 H (70-99) mg/dL POC Glucose (70-99) mg/dL Calcium 8.9 (8.5-10.1) mg/dL Total Bilirubin 0.3 (0.2-1.0) mg/dL AST 48 H (15-37) U/L ALT 62 H (14-59) U/L Alkaline Phosphatase 95 (46-116) U/L Troponin I < 0.017 (0.00-0.056) ng/mL C-Reactive Protein <0.2 (<1.0) mg/dL Total Protein 7.5 (6.4-8.2) g/dl Albumin 3.4 (3.4-5.0) g/dl Globulin 4.1 gm/dL Albumin/Globulin Ratio 0.8 L (1-2) Triglycerides (<150) mg/dL Cholesterol (<200) mg/dL LDL Cholesterol Direct (<100) mg/dL HDL Cholesterol (40-59) mg/dL SARS-CoV-2 RNA (JAYCE) (NEGATIVE) 08/12/20 08/12/20 08/13/20 Range/Units 16:33 16:50 04:48 WBC (3.98-10.04) K/mm3 RBC (3.98-5.22) M/mm3 Hgb (11.2-15.7) gm/dl Hct (34.1-44.9) % MCV (79.4-94.8) fl MCH (25.6-32.2) pg MCHC (32.2-35.5) g/dl RDW Std Deviation (36.4-46.3) fL Plt Count (182-369) K/mm3 MPV (9.4-12.3) fl Neut % (Auto) (34.0-71.1) % Lymph % (Auto) (19.3-51.7) % [place] % (Auto) (4.7-12.5) % Eos % (Auto) (0.7-5.8) Baso % (Auto) (0.1-1.2) % Neut # (Auto) (1.56-6.13) K/mm3 Lymph # (Auto) (1.18-3.74) K/mm3 [place] # (Auto) (0.24-0.36) K/mm3 Eos # (Auto) (0.04-0.36) K/mm3 Baso # (Auto) (0.01-0.08) K/mm3 Sodium (136-145) mEq/L Potassium (3.5-5.1) mEq/L Chloride (98-107) mEq/L Carbon Dioxide (21-32) mEq/L Anion Gap (5-15) BUN (7-18) mg/dL Creatinine (0.55-1.02) mg/dL Est Cr Clr Drug Dosing Estimated GFR (MDRD) (>60) mL/min BUN/Creatinine Ratio (14-18) Glucose (70-99) mg/dL POC Glucose 197 H (70-99) mg/dL Calcium (8.5-10.1) mg/dL Total Bilirubin (0.2-1.0) mg/dL AST (15-37) U/L ALT (14-59) U/L Alkaline Phosphatase (46-116) U/L Troponin I (0.00-0.056) ng/mL C-Reactive Protein (<1.0) mg/dL Total Protein (6.4-8.2) g/dl Albumin (3.4-5.0) g/dl Globulin gm/dL Albumin/Globulin Ratio (1-2) Triglycerides 199 H (<150) mg/dL Cholesterol 155 (<200) mg/dL LDL Cholesterol Direct 80 (<100) mg/dL HDL Cholesterol 45.0 (40-59) mg/dL SARS-CoV-2 RNA (JAYCE) Negative (NEGATIVE) Med Orders - Current: Current Medications Acetaminophen (Acetaminophen 325 Mg Tab) 650 mg PO Q4H PRN PRN Reason: Pain (Mild 1-3)/fever Aspirin (Aspirin 81 Mg Tab.Chew) 81 mg PO DAILY [facility] Last Admin: 08/13/20 08:44 Dose: 81 mg Documented by: Atorvastatin Calcium (Atorvastatin 40 Mg Tab) 80 mg PO BEDTIME [facility] Carvedilol (Carvedilol 12.5 Mg Tab) 25 mg PO BID [facility] Last Admin: 08/13/20 08:43 Dose: 25 mg Documented by: Docusate Sodium (Docusate Sodium 100 Mg Cap) 100 mg PO BID PRN PRN Reason: Constipation Furosemide (Furosemide 20 Mg Tab) 20 mg PO DAILY [facility] Last Admin: 08/13/20 08:44 Dose: 20 mg Documented by: Heparin Sodium (Porcine) (Heparin Sodium 5,000 Units/Ml Vial) 5,000 units SUBCUT Q8H [facility] Last Admin: 08/13/20 06:48 Dose: 5,000 units Documented by: Insulin Human Lispro (Insulin Lispro 100 Unit/Ml 10 Ml Vial) 0 unit SUBCUT QIDACANDBED [facility]; Protocol Last Admin: 08/13/20 08:52 Dose: 2 units Documented by: Chantix 1mg - Pt's (Own Med) 0 each PO BID [facility] Last Admin: 08/13/20 08:52 Dose: 1 each Documented by: Escitalopram 20mg - (Pt's Own Med) 0 each PO BEDTIME [facility] Anoro Ellipta - Pt's (Own Med) 0 each INH BEDTIME [facility] Ondansetron HCl (Ondansetron 4 Mg Tab.Dis) 4 mg PO Q4H PRN PRN Reason: nausea, able to take PO Ondansetron HCl (Ondansetron 4 Mg/2 Ml Sdv) 4 mg IV Q4H PRN PRN Reason: Nausea/Vomiting Pantoprazole Sodium (Pantoprazole 40 Mg Tab.Cr) 40 mg PO ACBREAKFAST [facility] Last Admin: 08/13/20 06:48 Dose: 40 mg Documented by: Sodium Chloride (Sodium Chloride 0.9% 10 Ml Syringe) 10 ml FLUSH ASDIRECTED PRN PRN Reason: Keep Vein Open Trazodone HCl (Trazodone 50 Mg Tab) 50 mg PO BEDTIME PRN PRN Reason: Insomnia Zolpidem Tartrate (Zolpidem 10 Mg Tab) 10 mg PO BEDTIME PRN PRN Reason: Insomnia Last Admin: 08/13/20 02:57 Dose: 10 mg Documented by: Discontinued Medications Aspirin (Aspirin 81 Mg Tab.Chew) 81 mg PO ONETIME ONE Stop: 08/12/20 18:01 Last Admin: 08/12/20 18:16 Dose: 81 mg Documented by: Atorvastatin Calcium (Atorvastatin 40 Mg Tab) 80 mg PO BEDTIME [facility] Last Admin: 08/12/20 22:37 Dose: Not Given Documented by: Carvedilol (Carvedilol 12.5 Mg Tab) 25 mg PO BID [facility] Last Admin: 08/12/20 23:39 Dose: Not Given Documented by: Heparin Sodium (Porcine) (Heparin Sodium 5,000 Units/Ml Vial) 5,000 units SUBCUT Q8H [facility] Last Admin: 08/13/20 05:45 Dose: Not Given Documented by: Heparin Sodium (Porcine) (Heparin Sodium 5,000 Units/Ml Vial) 5,000 units SUBCUT ONETIME ONE Stop: 08/12/20 23:16 Last Admin: 08/12/20 23:32 Dose: 5,000 units Documented by: Sodium Chloride (Normal Saline) 100 mls @ 60 mls/hr IV ASDIRECTED [facility] Iopamidol (Iopamidol 755 Mg/Ml 100 Ml Bottle) 100 ml IVPUSH ONETIME ONE Stop: 08/12/20 18:16 Last Admin: 08/12/20 22:36 Dose: Not Given Documented by: Miscellaneous Information (Remove Nicotine 14 Mg Patch) 1 ea TRDERM DAILY [facility] Prednisone (Prednisone 20 Mg Tab) 40 mg PO DAILY [facility] Sodium Chloride (Sodium Chloride 0.9% 10 Ml Syringe) 10 ml FLUSH ASDIRECTED [facility] - Exam Quality Assessment: Reports: DVT Prophylaxis. Denies: Supplemental Oxygen HEENT: Reports: Pupils Equal, EOMI Lungs: Reports: Clear to Auscultation, Normal Respiratory Effort Cardiovascular: Reports: Regular Rate, Regular Rhythm, No Murmurs GI/Abdominal Exam: Normal Bowel Sounds, Soft, Non-Tender, No Distention Extremities: Normal Inspection, No Pedal Edema Skin: Reports: Warm, Dry Neurological: Reports: No New Focal Deficit, Normal Gait, Normal Speech, Strength Equal Bilateral, Cranial Nerves Intact Psy/Mental Status: Reports: Alert
[2020-08-13 13:11] VITALS: BP 154/57; PULSE 73
--- NOTE | 2020-08-13 14:15 | US ---
Carotid ultrasound: Multiple real-time images were obtained. Comparison: No prior carotid imaging is available. Findings: Plaque: Moderate amount of plaque is noted within both carotid bulbs with extension into the right internal carotid artery. Plaque has calcific characteristics with surface margin not well seen. Velocity measurements: Right side: CCA has a peak systolic velocity of 0.69 m/s. ICA has a peak systolic velocity of 0.58 m/s and peak end-diastolic velocity of 0.18 m/s. ECA has a peak systolic velocity of 0.69 m/s. Vertebral artery has a peak systolic velocity of 0.30 m/s. ICA/CCA ratio is 0.85. Left side: CCA has a peak systolic velocity of 1.29 m/s. ICA has a peak systolic velocity of 1.06 m/s and peak end-diastolic velocity of 0.20 m/s. ECA has a peak systolic velocity of 1.43 m/s. Vertebral artery has a peak systolic velocity of 0.51 m/s. ICA/CCA ratio is 0.82. Impression: 1. Plaque as noted above. 2. Velocity measurements within both internal carotid arteries correspond to stenosis in the range 1-49 percent. Diagnostic code #3
[2020-08-13] MEDS ORDERED: ESCITALOPRAM 20 MG PO SCH (21:00)
[2020-08-13] MEDS ORDERED: atorvaSTATin 40 MG Tab PO SCH (21:00)
[2020-08-13] MEDS ORDERED: ANORO ELLIPTA INH SCH (21:00)
== END 2020-08-13 14:50 | disposition home or self-care (01) ==
LOC: JD.ED 16:22 → JD.MS 18:43 → UNDOADMOB 18:43 → JD.MS 18:45
PROVIDERS: ADMIT Hospitalist; ATTEND Hospitalist
DX: R47.9 Unspecified speech disturbances (principal); E78.00 Pure hypercholesterolemia, unspecified; I11.0 Hypertensive heart disease with heart failure; J44.9 Chronic obstructive pulmonary disease, unspecified; E11.9 Type 2 diabetes mellitus without complications; Z20.822 Contact with and (suspected) exposure to COVID-19; Z88.1 Allergy status to other antibiotic agents; Z88.8 Allergy status to other drugs, medicaments and biological substances; Z98.890 Other specified postprocedural states; Z90.49 Acquired absence of other specified parts of digestive tract; Z79.899 Other long term (current) drug therapy
CPT/HCPCS: 36415; 70450; 70551; 80053; 80061; 82947; 83036; 84484; 85025; 86140; 87635; 93005; 93306; 93880; 96372; 97161; 97165; 99285; A9270; G0378; J1644; J1815; 93010; 99217; 99219; U0002